=== PATIENT | male | born 1980 | race African-American/Black ===

== ENCOUNTER → 2019-03-18 | Emergency (ER) | payer MEDICAID ==
[~2019-03-18] MED LIST: HALOPERIDOL LACTATE 5MG/ML VIAL IM STA; LORAZEPAM 2MG/ML CPJ IM STA
== END | disposition left against medical advice (07) ==
LOC: ER 17:03
DX: F98.9 Unspecified behavioral and emotional disorders with onset usually occurring in childhood and adolescence (principal); Z53.21 Procedure and treatment not carried out due to patient leaving prior to being seen by health care provider
CPT/HCPCS: J1630; J2060; Z7610

== ENCOUNTER 2019-07-17 14:03 | Emergency (ER) | payer MEDICAID ==
[~2019-07-17] VITALS: Ht 182.9 cm; Wt 100.0 kg
[2019-07-17] MEDS ORDERED: SODIUM CHLORIDE 0.9% 1,000 ML IV ONE (14:21)
[2019-07-17] MEDS ORDERED: ACETAMINOPHEN 325MG TABLET PO ONE (14:30)
[2019-07-17] MEDS ORDERED: LORAZEPAM 2MG/ML CPJ IV ONE ×2 (14:30→16:30)
[2019-07-17] MEDS ORDERED: ONDANSETRON HCL 4MG/2ML INJ IV ONE ×2 (14:30)
[2019-07-17] MEDS ORDERED: OLANZAPINE 10 MG/VIAL IM ONE (15:00)
[2019-07-17 16:31] LABS: BASOPHILS % 0.6 % (0.0-2.0); EOSINOPHILS % 0.1 % (0.0-5.0); HEMATOCRIT. 38.4 % (42.0-52.0); HEMOGLOBIN. 12.7 g/dL (14.0-18.0); LYMPHOCYTES % 24.2 % (20.0-50.0); MEAN CORPUSCULAR HEMOGLOBIN 27.9 pg (28.0-32.0); MONOCYTES % 6.7 % (2.0-8.0); NEUTROPHILS % 68.4 % (40.0-76.0); PLATELET 300 x1000/uL (130-400); RED BLOOD CELL COUNT 4.57 mill/uL (4.7-6.1)
[2019-07-17 16:37] LABS: CHLORIDE 109 mEq/L (98-107)
[2019-07-17 16:47] LABS: ETHANOL BLOOD 32 mg/dL
[2019-07-17] MEDS ORDERED: ONDANSETRON HCL 4MG/2ML INJ IV NR (19:00)
[2019-07-17 21:08] LABS: *AMPHETAMINES SCREEN URINE PRESUMTIVE POSITIVE (NEGATIVE); *BARBITURATES SCREEN URINE NEGATIVE (NEGATIVE); *BENZODIAZEPINES SCREEN URINE NEGATIVE (NEGATIVE); *COCAINE SCREEN URINE NEGATIVE (NEGATIVE); METHADONE URINE SCREEN NEGATIVE (NEGATIVE); OPIATES URINE SCREEN NEGATIVE (NEGATIVE); PHENCYCLIDINE URINE SCREEN NEGATIVE (NEGATIVE)
[2019-07-17 21:09] LABS: CANNABINOID URINE SCREEN PRESUMTIVE POSITIVE (NEGATIVE)
[2019-07-18 00:30] VITALS: BP 138/74
== END 2019-07-18 00:30 | disposition home or self-care (01) ==
LOC: ER 14:29
DX: G92 Toxic encephalopathy (principal); R41.82 Altered mental status, unspecified; Z20.828 Contact with and (suspected) exposure to other viral communicable diseases
CPT/HCPCS: 36415; 71045; 80053; 80305; 80307; 80320; 80329; 84484; 85025; 93005; 96372; 96374; 96375; 96376; 99285; J2060; J2405; J3490; J7030; G0480; U0003-CS

== ENCOUNTER 2020-02-29 21:02 | Emergency (ER) | payer MEDICAID ==
[~2020-02-29] VITALS: Ht 177.8 cm; Wt 90.0 kg
[2020-02-29 21:13] VITALS: BP 142/86
[2020-03-01 00:01] LABS: BASOPHILS % 0.5 % (0.0-2.0); HEMATOCRIT. 40.3 % (42.0-52.0); HEMOGLOBIN. 13.2 g/dL (14.0-18.0); LYMPHOCYTES % 9.1 % (20.0-50.0); MEAN CORPUSCULAR HEMOGLOBIN 26.8 pg (28.0-32.0); MEAN CORPUSCULAR VOLUME 81.8 fL (80.0-94.0); MEAN PLATELET VOLUME 7.7 fl (7.4-10.4); MONOCYTES % 6.5 % (2.0-8.0); NEUTROPHILS % 83.9 % (40.0-76.0); PLATELET 231 x1000/uL (130-400); RED BLOOD CELL COUNT 4.93 mill/uL (4.7-6.1); RED CELL DISTRIBUTION WIDTH 16.5 % (11.6-14.6)
[2020-03-01 00:07] LABS: PROTHROMBIN TIME 10.3 sec (9.6-11.0)
[2020-03-01 00:22] LABS: CHLORIDE 107 mEq/L (98-107)
[2020-03-01 00:26] LABS: ETHANOL BLOOD < 10 mg/dL
[2020-03-04 15:09] LABS: CARBOXYHEMOGLOBIN 2.3 % (0.0-3.6)
== END 2020-03-01 06:49 | disposition home or self-care (01) ==
LOC: ER 21:02
DX: R00.0 Tachycardia, unspecified (principal); T65.91XA Toxic effect of unspecified substance, accidental (unintentional), initial encounter; Z59.0 Homelessness; Z98.890 Other specified postprocedural states; Y92.9 Unspecified place or not applicable
CPT/HCPCS: 36415; 80048; 80076; 80178; 80307; 80320; 80329; 82140; 82375; 83930; 84443; 84484; 85025; 86592; 93005; 99284; G0480

== ENCOUNTER 2020-11-07 05:31 | Emergency (ER) | payer MEDICAID ==
[~2020-11-07] VITALS: Ht 172.7 cm; Wt 73.0 kg
[2020-11-07 06:06] LABS: BASOPHILS % 0.3 % (0.0-2.0); EOSINOPHILS % 0.1 % (0.0-5.0); HEMATOCRIT. 40.4 % (42.0-52.0); HEMOGLOBIN. 13.3 g/dL (14.0-18.0); LYMPHOCYTES % 13.3 % (20.0-50.0); MEAN CORPUSCULAR HEMOGLOBIN 27.2 pg (28.0-32.0); MEAN CORPUSCULAR VOLUME 82.8 fL (80.0-94.0); MEAN PLATELET VOLUME 7.2 fl (7.4-10.4); MONOCYTES % 6.9 % (2.0-8.0); NEUTROPHILS % 79.4 % (40.0-76.0); PLATELET 273 x1000/uL (130-400); RED BLOOD CELL COUNT 4.88 mill/uL (4.7-6.1); RED CELL DISTRIBUTION WIDTH 16.3 % (11.6-14.6)
[2020-11-07 06:12] LABS: CHLORIDE 108 mEq/L (98-107)
[2020-11-07 06:16] LABS: ETHANOL BLOOD < 10 mg/dL
[2020-11-07] MEDS: OLANZAPINE 5MG TABLET PO SCH ×2 (10:47→17:42)
[2020-11-07] MEDS ORDERED: ACETAMINOPHEN 325MG TABLET PO ONE (13:15)
[2020-11-07 22:25] LABS: CLARITY URINE CLEAR (CLEAR); COLOR URINE YELLOW (YELLOW); KETONES URINE TRACE (NEGATIVE); LEUKOCYTE ESTERASE URINE NEGATIVE (NEGATIVE); NITRITE URINE NEGATIVE (NEGATIVE); OCCULT BLOOD URINE NEGATIVE (NEGATIVE); PROTEIN URINE NEGATIVE (NEGATIVE); SPECIFIC GRAVITY URINE 1.018 (1.005-1.030); UROBILINOGEN URINE 0.2 E.U./dL (0.2-1.0)
[2020-11-07 22:38] LABS: *AMPHETAMINES SCREEN URINE PRESUMTIVE POSITIVE (NEGATIVE)
[2020-11-07 22:39] LABS: *BARBITURATES SCREEN URINE NEGATIVE (NEGATIVE); *BENZODIAZEPINES SCREEN URINE NEGATIVE (NEGATIVE); *COCAINE SCREEN URINE NEGATIVE (NEGATIVE); METHADONE URINE SCREEN NEGATIVE (NEGATIVE); OPIATES URINE SCREEN NEGATIVE (NEGATIVE); PHENCYCLIDINE URINE SCREEN NEGATIVE (NEGATIVE)
[2020-11-07 22:40] LABS: CANNABINOID URINE SCREEN PRESUMTIVE POSITIVE (NEGATIVE)
[2020-11-08] VITALS: BP 140/97
== END 2020-11-08 01:47 ==
LOC: ER 05:31
DX: R45.850 Homicidal ideations (principal); J45.909 Unspecified asthma, uncomplicated; I10 Essential (primary) hypertension; F12.10 Cannabis abuse, uncomplicated; F15.10 Other stimulant abuse, uncomplicated; Z20.822 Contact with and (suspected) exposure to COVID-19
CPT/HCPCS: 36415; 80053; 80305; 80320; 81003; 82962; 85025; 99285; C9803; U0003; U0005; G0480

== ENCOUNTER 2020-12-25 12:06 | Emergency (ER) | payer MEDICAID ==
[~2020-12-25] VITALS: Ht 188 cm; Wt 100.0 kg
[2020-12-25] MEDS ORDERED: SODIUM CHLORIDE 0.9% 1,000 ML IV ONE ×2 (12:15→15:15)
[2020-12-25] MEDS ORDERED: LORAZEPAM 2MG/ML CPJ IV ONE ×2 (12:30→15:45)
[2020-12-25] MEDS ORDERED: MIDAZOLAM HCL 2 MG/2 ML VIAL IV ONE ×2 (12:45→14:15)
[2020-12-25 12:53] LABS: BASOPHILS % 0.6 % (0.0-2.0); EOSINOPHILS % 0.1 % (0.0-5.0); HEMATOCRIT. 39.5 % (42.0-52.0); HEMOGLOBIN. 13.1 g/dL (14.0-18.0); MEAN CORPUSCULAR HEMOGLOBIN 27.7 pg (28.0-32.0); MEAN CORPUSCULAR VOLUME 83.4 fL (80.0-94.0); MEAN PLATELET VOLUME 7.5 fl (7.4-10.4); MONOCYTES % 7.2 % (2.0-8.0); NEUTROPHILS % 75.1 % (40.0-76.0); PLATELET 262 x1000/uL (130-400); RED BLOOD CELL COUNT 4.74 mill/uL (4.7-6.1); RED CELL DISTRIBUTION WIDTH 16.1 % (11.6-14.6)
[2020-12-25 12:59] LABS: CHLORIDE 106 mEq/L (98-107)
[2020-12-25 13:04] LABS: ETHANOL BLOOD < 10 mg/dL
[2020-12-25] MEDS ORDERED: DIPHENHYDRAMINE 50MG/ML VIAL IV ONE (13:15)
[2020-12-25] MEDS ORDERED: OLANZAPINE 10 MG/VIAL IM ONE (14:15)
[2020-12-25 16:42] LABS: CLARITY URINE CLEAR (CLEAR); COLOR URINE YELLOW (YELLOW); KETONES URINE TRACE (NEGATIVE); LEUKOCYTE ESTERASE URINE NEGATIVE (NEGATIVE); NITRITE URINE NEGATIVE (NEGATIVE); OCCULT BLOOD URINE NEGATIVE (NEGATIVE); PH URINE 8.5 (4.5-8.0); PROTEIN URINE TRACE (NEGATIVE); UROBILINOGEN URINE 0.2 E.U./dL (0.2-1.0)
[2020-12-25] MEDS ORDERED: CLONIDINE 0.2MG TABLET PO ONE (17:15)
[2020-12-25 17:28] LABS: *AMPHETAMINES SCREEN URINE PRESUMTIVE POSITIVE (NEGATIVE); *BARBITURATES SCREEN URINE PRESUMTIVE POSITIVE (NEGATIVE); *BENZODIAZEPINES SCREEN URINE PRESUMTIVE POSITIVE (NEGATIVE); *COCAINE SCREEN URINE NEGATIVE (NEGATIVE); METHADONE URINE SCREEN NEGATIVE (NEGATIVE)
[2020-12-25 17:29] LABS: CANNABINOID URINE SCREEN PRESUMTIVE POSITIVE (NEGATIVE); OPIATES URINE SCREEN NEGATIVE (NEGATIVE); PHENCYCLIDINE URINE SCREEN NEGATIVE (NEGATIVE)
[2020-12-25] MEDS ORDERED: ASPIRIN 81MG TABLET PO ONE (17:30)
[2020-12-25] MEDS ORDERED: NITROGLYCERIN 0.4MG TABLET SL SL PRN (17:30)
[2020-12-25 18:00] VITALS: BP 145/99
[2020-12-25] MEDS ORDERED: IBUP-2028 MT (18:13)
== END 2020-12-25 18:59 | disposition home or self-care (01) ==
LOC: ER 12:19
DX: T43.621A Poisoning by amphetamines, accidental (unintentional), initial encounter (principal); T40.991A Poisoning by other psychodysleptics [hallucinogens], accidental (unintentional), initial encounter; T42.3X1A Poisoning by barbiturates, accidental (unintentional), initial encounter; T40.711A Poisoning by cannabis, accidental (unintentional), initial encounter; R00.0 Tachycardia, unspecified; R07.89 Other chest pain; F41.9 Anxiety disorder, unspecified; F15.129 Other stimulant abuse with intoxication, unspecified; F16.129 Hallucinogen abuse with intoxication, unspecified; F13.129 Sedative, hypnotic or anxiolytic abuse with intoxication, unspecified; F12.129 Cannabis abuse with intoxication, unspecified; D72.819 Decreased white blood cell count, unspecified; I10 Essential (primary) hypertension; J45.909 Unspecified asthma, uncomplicated; Y92.89 Other specified places as the place of occurrence of the external cause; Z78.1 Physical restraint status
CPT/HCPCS: 36415; 71045; 80053; 80305; 80307; 80320; 80329; 81003; 84484; 85025; 93005; 96361; 96372; 96374; 96375; 96376; 99285; J1200; J2060; J2250; J3490; J7030; Z7610; G0480

== ENCOUNTER 2021-06-01 19:20 | Emergency (ER) | payer MEDICAID, MEDICARE ==
[~2021-06-01] VITALS: Ht 182.9 cm; Wt 81.0 kg
[~2021-06-01 19:20] MED LIST changes: -HALOPERIDOL LACTATE 5MG/ML VIAL IM STA; +IBUP-2028 MT; -LORAZEPAM 2MG/ML CPJ IM STA
[2021-06-01 20:33] LABS: BASOPHILS % 0.3 % (0.0-2.0); EOSINOPHILS % 0.1 % (0.0-5.0); HEMATOCRIT. 36.1 % (42.0-52.0); MEAN CORPUSCULAR HEMOGLOBIN 26.9 pg (28.0-32.0); MEAN CORPUSCULAR VOLUME 81.1 fL (80.0-94.0); MEAN PLATELET VOLUME 7.2 fl (7.4-10.4); NEUTROPHILS % 72.6 % (40.0-76.0); PLATELET 238 x1000/uL (130-400); RED BLOOD CELL COUNT 4.45 mill/uL (4.7-6.1); RED CELL DISTRIBUTION WIDTH 18.5 % (11.6-14.6)
[2021-06-01 20:38] LABS: CHLORIDE 112 mEq/L (98-107)
[2021-06-01] MEDS ORDERED: DIPHENHYDRAMINE 25MG CAPSULE PO ONE (21:00)
[2021-06-02] VITALS: BP 136/85
== END 2021-06-02 00:04 | disposition home or self-care (01) ==
LOC: ER 19:20
DX: T43.621A Poisoning by amphetamines, accidental (unintentional), initial encounter (principal); R07.2 Precordial pain; R51.9 Headache, unspecified; F15.188 Other stimulant abuse with other stimulant-induced disorder; R94.31 Abnormal electrocardiogram [ECG] [EKG]; Y93.89 Activity, other specified; Y92.89 Other specified places as the place of occurrence of the external cause
CPT/HCPCS: 36415; 71045; 80053; 84484; 85025; 93005; 99285; Q0163

== ENCOUNTER 2021-06-04 03:31 | Emergency (ER) | payer MEDICAID, MEDICARE ==
[~2021-06-04] VITALS: Ht 172.7 cm; Wt 85.0 kg
[2021-06-04] MEDS ORDERED: DIPHENHYDRAMINE 50MG/ML VIAL IM STA (04:24)
[2021-06-04] MEDS ORDERED: LORAZEPAM 2MG/ML CPJ IM STA (04:24)
[2021-06-04 04:57] LABS: BASOPHILS % 0.2 % (0.0-2.0); HEMATOCRIT. 36.1 % (42.0-52.0); LYMPHOCYTES % 11.8 % (20.0-50.0); MEAN CORPUSCULAR VOLUME 81.4 fL (80.0-94.0); MEAN PLATELET VOLUME 7.1 fl (7.4-10.4); MONOCYTES % 7.5 % (2.0-8.0); NEUTROPHILS % 80.5 % (40.0-76.0); PLATELET 253 x1000/uL (130-400); RED BLOOD CELL COUNT 4.44 mill/uL (4.7-6.1); RED CELL DISTRIBUTION WIDTH 18.8 % (11.6-14.6)
[2021-06-04 05:05] LABS: CHLORIDE 105 mEq/L (98-107)
[2021-06-04 05:09] LABS: ETHANOL BLOOD < 10 mg/dL
[2021-06-04 10:55] VITALS: BP 130/86
== END 2021-06-04 10:59 | disposition home or self-care (01) ==
LOC: ER 03:31
DX: F15.129 Other stimulant abuse with intoxication, unspecified (principal); R00.0 Tachycardia, unspecified; I10 Essential (primary) hypertension; J45.909 Unspecified asthma, uncomplicated
CPT/HCPCS: 36415; 80053; 80307; 80320; 80329; 85025; 96372; 99284; J1200; J2060; G0480

== ENCOUNTER 2021-06-08 11:44 | Emergency (ER) | payer MEDICAID ==
[~2021-06-08] VITALS: Ht 175.3 cm; Wt 85.0 kg
[2021-06-08] MEDS ORDERED: LORAZEPAM 1MG TABLET PO ONE (12:45)
[2021-06-08] MEDS ORDERED: DIPHENHYDRAMINE 25MG CAPSULE PO ONE (13:45)
[2021-06-08] MEDS: HALOPERIDOL LACTATE 5MG/ML VIAL IM ONE ×2 (14:13→15:25)
[2021-06-08] MEDS ORDERED: LORAZEPAM 2MG/ML CPJ IM ONE (14:15)
[2021-06-08 22:52] VITALS: BP 108/76
== END 2021-06-08 22:54 | disposition home or self-care (01) ==
LOC: ER 11:55
DX: T43.621A Poisoning by amphetamines, accidental (unintentional), initial encounter (principal); Y92.89 Other specified places as the place of occurrence of the external cause; J45.909 Unspecified asthma, uncomplicated; I10 Essential (primary) hypertension
CPT/HCPCS: 93005; 96372; 99291; J1630; J2060; Q0163

== ENCOUNTER 2021-07-24 17:46 | Emergency (ER) | payer MEDICAID ==
[~2021-07-24] VITALS: Ht 180.3 cm; Wt 78.0 kg
[~2021-07-24 17:46] MED LIST changes: +ASPI-986 MT; +LIP40 PO
[2021-07-24] MEDS ORDERED: DIPHENHYDRAMINE 50MG/ML VIAL IM STA (19:06)
[2021-07-24] MEDS ORDERED: HALOPERIDOL LACTATE 5MG/ML VIAL IM STA (19:06)
[2021-07-24] MEDS ORDERED: LORAZEPAM 2MG/ML CPJ IM STA (19:06)
[2021-07-24] MEDS ORDERED: SODIUM CHLORIDE 0.9% 1,000 ML IV ONE ×2 (19:15)
[2021-07-24 19:30] LABS: BASOPHILS % 0.2 % (0.0-2.0); HEMOGLOBIN. 12.5 g/dL (14.0-18.0); LYMPHOCYTES % 12.5 % (20.0-50.0); MEAN CORPUSCULAR HEMOGLOBIN 26.4 pg (28.0-32.0); MEAN CORPUSCULAR VOLUME 80.4 fL (80.0-94.0); MEAN PLATELET VOLUME 7.4 fl (7.4-10.4); MONOCYTES % 7.9 % (2.0-8.0); NEUTROPHILS % 79.4 % (40.0-76.0); PLATELET 315 x1000/uL (130-400); RED BLOOD CELL COUNT 4.73 mill/uL (4.7-6.1); RED CELL DISTRIBUTION WIDTH 18.2 % (11.6-14.6)
[2021-07-24 19:31] LABS: CHLORIDE 107 mEq/L (98-107)
[2021-07-24 19:42] LABS: CREATINE KINASE 395 IU/L (39-308); ETHANOL BLOOD < 10 mg/dL
[2021-07-24] MEDS ORDERED: POTASSIUM CHLORIDE 20MEQ TABLET SR PO ONE (21:30)
[2021-07-24 22:05] LABS: *AMPHETAMINES SCREEN URINE PRESUMTIVE POSITIVE (NEGATIVE); *BARBITURATES SCREEN URINE NEGATIVE (NEGATIVE); *BENZODIAZEPINES SCREEN URINE PRESUMTIVE POSITIVE (NEGATIVE); *COCAINE SCREEN URINE NEGATIVE (NEGATIVE); CANNABINOID URINE SCREEN PRESUMTIVE POSITIVE (NEGATIVE); METHADONE URINE SCREEN NEGATIVE (NEGATIVE); OPIATES URINE SCREEN NEGATIVE (NEGATIVE); PHENCYCLIDINE URINE SCREEN NEGATIVE (NEGATIVE)
[2021-07-25] MEDS ORDERED: ASPIRIN 81MG TABLET PO ONE
[2021-07-25] MEDS: NITROGLYCERIN 0.4MG TABLET SL SL PRN ×2 (00:10→00:42)
[2021-07-25] MEDS ORDERED: DIPHENHYDRAMINE 50MG CAPSULE PO ONE (02:15)
[2021-07-25 08:27] VITALS: BP 147/85
== END 2021-07-25 10:58 | disposition home or self-care (01) ==
LOC: ER 17:46
DX: R45.1 Restlessness and agitation (principal); R07.89 Other chest pain; R45.850 Homicidal ideations; F15.10 Other stimulant abuse, uncomplicated; T43.621A Poisoning by amphetamines, accidental (unintentional), initial encounter; Y92.89 Other specified places as the place of occurrence of the external cause; F10.229 Alcohol dependence with intoxication, unspecified; Y90.0 Blood alcohol level of less than 20 mg/100 ml; F41.9 Anxiety disorder, unspecified; J45.909 Unspecified asthma, uncomplicated; I10 Essential (primary) hypertension; Z20.822 Contact with and (suspected) exposure to COVID-19
CPT/HCPCS: 36415; 71045; 80053; 80305; 80307; 80320; 80329; 82550; 83880; 84484; 85025; 93005; 96360; 96372; 99291; C9803; J1200; J1630; J2060; J7030; U0003; U0005; Q0163; G0480

== ENCOUNTER 2021-08-25 14:57 | Inpatient (IN) | payer MEDICAID ==
[~2021-08-25] VITALS: Ht 188 cm; Wt 79.0 kg
[2021-08-25] MEDS ORDERED: NITROGLYCERIN 0.4MG TABLET SL SL PRN ×2 (15:15→18:00)
[2021-08-25] MEDS ORDERED: MIDAZOLAM HCL 2 MG/2 ML VIAL IV ONE (15:15)
[2021-08-25] MEDS ORDERED: SODIUM CHLORIDE 0.9% 1,000 ML IV ONE (15:15)
[2021-08-25] MEDS ORDERED: ASPIRIN 81MG TABLET PO ONE (15:15)
[2021-08-25] MEDS ORDERED: KETOROLAC 15MG/ML VIAL IV ONE (15:30)
[2021-08-25] MEDS ORDERED: DIPHENHYDRAMINE 50MG/ML VIAL IV ONE (15:30)
[2021-08-25 16:18] LABS: BASOPHILS % 0.5 % (0.0-2.0); EOSINOPHILS % 0.1 % (0.0-5.0); HEMATOCRIT. 37.5 % (42.0-52.0); HEMOGLOBIN. 12.3 g/dL (14.0-18.0); LYMPHOCYTES % 14.5 % (20.0-50.0); MEAN CORPUSCULAR HEMOGLOBIN 26.3 pg (28.0-32.0); MEAN CORPUSCULAR VOLUME 80.2 fL (80.0-94.0); MONOCYTES % 6.4 % (2.0-8.0); NEUTROPHILS % 78.5 % (40.0-76.0); RED BLOOD CELL COUNT 4.67 mill/uL (4.7-6.1); RED CELL DISTRIBUTION WIDTH 17.1 % (11.6-14.6)
[2021-08-25 16:22] LABS: CHLORIDE 105 mEq/L (98-107)
[2021-08-25 16:32] LABS: ETHANOL BLOOD 34 mg/dL
[2021-08-25] MEDS ORDERED: DILTIAZEM HCL 5MG/ML 5ML VIAL IV ONE (16:45)
[2021-08-25] MEDS ORDERED: DILTIAZEM HCL 5MG/ML 10ML VIAL IV NR (16:52)
[2021-08-25] MEDS ORDERED: IPRATROPIUM/ALBUTEROL 0.5-3(2.5)MG/3ML NEB NEB PRN (18:00)
[2021-08-25] MEDS ORDERED: ZOLPIDEM TARTRATE 5MG TABLET PO PRN (18:00)
[2021-08-25] MEDS ORDERED: GUAIFENESIN 200MG/10ML SUGAR FREE UDC PO PRN (18:00)
[2021-08-25] MEDS ORDERED: MAGNESIUM/ALUMINUM HYDROXIDE/SIMETHICONE 30ML UDC PO PRN (18:00)
[2021-08-25] MEDS ORDERED: CLONIDINE 0.1MG TABLET PO PRN (18:00)
[2021-08-25] MEDS ORDERED: ONDANSETRON HCL 4MG/2ML INJ IV PRN (18:00)
[2021-08-25] MEDS ORDERED: DOCUSATE SODIUM 100MG CAPSULE PO PRN (18:00)
[2021-08-25] MEDS ORDERED: ACETAMINOPHEN 325MG TABLET PO PRN (18:00)
[2021-08-25] MEDS ORDERED: NA PHOS,M-B/NA PHOS,DI-BA ENEMA 118ML PR PRN (18:00)
[2021-08-25 18:26] LABS: MEAN PLATELET VOLUME 7.7 fl (7.4-10.4); PLATELET 239 x1000/uL (130-400)
[2021-08-25] MEDS ORDERED: MVI, ADULT NO.1 10 ML, FOLIC ACID 1 MG, THIAMINE HCL 100 MG in SODIUM CHLORIDE 0.9% 1,0... IV ONE ×4 (18:30)
[2021-08-25] MEDS: ENOXAPARIN 40MG/0.4ML SYR SUBCUT SCH (19:02)
[2021-08-25] MEDS: DILTIAZEM HCL 60MG TABLET PO SCH (19:02)
[2021-08-25 19:30] LABS: T4 FREE 0.93 ng/dL (0.76-1.46)
[2021-08-25 19:47] LABS: FOLIC ACID (FOLATE) SERUM 16.4 ng/mL (>5.38)
[2021-08-25 20:40] VITALS: BP 135/91
[2021-08-25] MEDS: FAMOTIDINE 20MG TABLET PO SCH (21:00)
[2021-08-25 23:14] LABS: CREATINE KINASE MB FRACTION 6.2 ng/mL (0.5-3.6)
[2021-08-25] MEDS: ACETAMINOPHEN 325MG TABLET PO PRN (23:26)
[2021-08-26] VITALS (12 sets, daily range): BP systolic 26–180; BP diastolic 16–107
[2021-08-26] MEDS: DILTIAZEM HCL 60MG TABLET PO SCH ×5 (01:16→23:53)
[2021-08-26 06:23] LABS: BASOPHILS % 0.6 % (0.0-2.0); EOSINOPHILS % 0.1 % (0.0-5.0); HEMATOCRIT. 36.4 % (42.0-52.0); HEMOGLOBIN. 11.9 g/dL (14.0-18.0); LYMPHOCYTES % 21.3 % (20.0-50.0); MEAN CORPUSCULAR HEMOGLOBIN 26.3 pg (28.0-32.0); MEAN CORPUSCULAR VOLUME 80.5 fL (80.0-94.0); MEAN PLATELET VOLUME 7.4 fl (7.4-10.4); MONOCYTES % 11.2 % (2.0-8.0); NEUTROPHILS % 66.8 % (40.0-76.0); PLATELET 229 x1000/uL (130-400); RED BLOOD CELL COUNT 4.53 mill/uL (4.7-6.1)
[2021-08-26 06:40] LABS: CHLORIDE 108 mEq/L (98-107)
[2021-08-26 07:01] LABS: CREATINE KINASE 1292 IU/L (39-308); CREATINE KINASE MB FRACTION 8.5 ng/mL (0.5-3.6); PHOSPHORUS 3.2 mg/dL (2.5-4.9)
[2021-08-26] MEDS: FAMOTIDINE 20MG TABLET PO SCH ×2 (08:33→21:30)
[2021-08-26] MEDS: ASPIRIN 325MG EC TABLET PO SCH (08:37)
[2021-08-26] MEDS: ACETAMINOPHEN 325MG TABLET PO PRN (08:44)
[2021-08-26] MEDS: KETOROLAC 15MG/ML VIAL IV PRN ×2 (10:41→17:57)
[2021-08-26] MEDS: CHLORDIAZEPOXIDE 10MG CAPSULE PO SCH (12:56)
[2021-08-26] MEDS: METOPROLOL TARTRATE 50MG TABLET PO SCH ×2 (12:57→21:43)
[2021-08-26] MEDS: ENOXAPARIN 40MG/0.4ML SYR SUBCUT SCH (17:57)
[2021-08-27] VITALS (14 sets, daily range): BP systolic 74–151; BP diastolic 25–114
[2021-08-27] MEDS: ACETAMINOPHEN 325MG TABLET PO PRN ×2 (05:05→20:13)
[2021-08-27] MEDS: DILTIAZEM HCL 60MG TABLET PO SCH ×3 (06:00→18:33)
[2021-08-27] MEDS: ASPIRIN 325MG EC TABLET PO SCH (09:49)
[2021-08-27] MEDS: CHLORDIAZEPOXIDE 10MG CAPSULE PO SCH (09:49)
[2021-08-27] MEDS: FAMOTIDINE 20MG TABLET PO SCH ×2 (09:49→20:13)
[2021-08-27] MEDS: METOPROLOL TARTRATE 50MG TABLET PO SCH ×2 (09:50→20:16)
[2021-08-27] MEDS: ENOXAPARIN 40MG/0.4ML SYR SUBCUT SCH (18:35)
[2021-08-28] VITALS: BP 150/96
[2021-08-28] MEDS: DILTIAZEM HCL 60MG TABLET PO SCH ×2 (00:11→05:52)
[2021-08-28] MEDS: ACETAMINOPHEN 325MG TABLET PO PRN (01:33)
[2021-08-28] MEDS: KETOROLAC 15MG/ML VIAL IV PRN ×2 (03:48→09:49)
[2021-08-28 04:00] VITALS: BP 131/82
[2021-08-28 06:33] LABS: BASOPHILS % 0.3 % (0.0-2.0); EOSINOPHILS % 0.5 % (0.0-5.0); HEMATOCRIT. 37.2 % (42.0-52.0); HEMOGLOBIN. 12.4 g/dL (14.0-18.0); LYMPHOCYTES % 31.5 % (20.0-50.0); MEAN CORPUSCULAR HEMOGLOBIN 26.6 pg (28.0-32.0); MEAN CORPUSCULAR VOLUME 79.6 fL (80.0-94.0); MEAN PLATELET VOLUME 7.6 fl (7.4-10.4); MONOCYTES % 11.3 % (2.0-8.0); NEUTROPHILS % 56.4 % (40.0-76.0); PLATELET 266 x1000/uL (130-400); RED BLOOD CELL COUNT 4.67 mill/uL (4.7-6.1); RED CELL DISTRIBUTION WIDTH 17.6 % (11.6-14.6)
[2021-08-28 06:47] LABS: CHLORIDE 103 mEq/L (98-107)
[2021-08-28 06:59] LABS: PHOSPHORUS 3.9 mg/dL (2.5-4.9)
[2021-08-28 08:00] VITALS: BP 154/44
[2021-08-28 09:30] VITALS: BP 136/52
[2021-08-28] MEDS: CHLORDIAZEPOXIDE 10MG CAPSULE PO SCH (09:48)
[2021-08-28] MEDS: ASPIRIN 325MG EC TABLET PO SCH (09:48)
[2021-08-28] MEDS: FAMOTIDINE 20MG TABLET PO SCH (09:48)
[2021-08-28] MEDS: METOPROLOL TARTRATE 50MG TABLET PO SCH (09:52)
[2021-08-28 11:27] VITALS: BP 136/54
== END 2021-08-28 12:00 | disposition home or self-care (01) | DRG 201 ==
LOC: ER 14:57 → 5EST 17:47 → ENRESERV 18:56
PROVIDERS: ADMIT Internal Medicine; ATTEND Internal Medicine
DX: I47.1 Supraventricular tachycardia (principal); N17.0 Acute kidney failure with tubular necrosis; R07.9 Chest pain, unspecified; I10 Essential (primary) hypertension; F19.10 Other psychoactive substance abuse, uncomplicated; F41.9 Anxiety disorder, unspecified; J45.909 Unspecified asthma, uncomplicated; Z87.891 Personal history of nicotine dependence; Z88.8 Allergy status to other drugs, medicaments and biological substances; F10.11 Alcohol abuse, in remission; R55 Syncope and collapse; Z71.51 Drug abuse counseling and surveillance of drug abuser
CPT/HCPCS: 36415; 71045; 80053; 80061; 80320; 82550; 82553; 82607; 82746; 83036; 83540; 83550; 83735; 83880; 84100; 84439; 84443; 84484; 85025; 93005; 93306; 93970; 99291; J1200; J1650; J1885; J2250; J3411; J3490; J7030; G0480

== ENCOUNTER 2021-08-30 18:19 | Emergency (ER) | payer MEDICAID ==
[~2021-08-30] VITALS: Ht 170.2 cm; Wt 77.0 kg
[2021-08-30] MEDS ORDERED: MIDAZOLAM HCL 2 MG/2 ML VIAL IV ONE (18:45)
[2021-08-30] MEDS ORDERED: SODIUM CHLORIDE 0.9% 1,000 ML IV ONE (18:45)
[2021-08-30] MEDS ORDERED: NITROGLYCERIN 0.4MG TABLET SL SL PRN (18:45)
[2021-08-30] MEDS ORDERED: ASPIRIN 81MG TABLET PO ONE (18:45)
[2021-08-30 21:22] LABS: CHLORIDE 106 mEq/L (98-107)
[2021-08-30 21:23] LABS: BASOPHILS % 0.3 % (0.0-2.0); EOSINOPHILS % 0.1 % (0.0-5.0); HEMATOCRIT. 37.1 % (42.0-52.0); HEMOGLOBIN. 12.2 g/dL (14.0-18.0); LYMPHOCYTES % 22.9 % (20.0-50.0); MEAN CORPUSCULAR HEMOGLOBIN 26.5 pg (28.0-32.0); MEAN CORPUSCULAR VOLUME 80.7 fL (80.0-94.0); MEAN PLATELET VOLUME 7.3 fl (7.4-10.4); MONOCYTES % 9.3 % (2.0-8.0); NEUTROPHILS % 67.4 % (40.0-76.0); PLATELET 281 x1000/uL (130-400); RED CELL DISTRIBUTION WIDTH 17.8 % (11.6-14.6)
[2021-08-30 21:30] LABS: *AMPHETAMINES SCREEN URINE PRESUMTIVE POSITIVE (NEGATIVE); *BARBITURATES SCREEN URINE NEGATIVE (NEGATIVE); *BENZODIAZEPINES SCREEN URINE PRESUMTIVE POSITIVE (NEGATIVE); *COCAINE SCREEN URINE NEGATIVE (NEGATIVE); CANNABINOID URINE SCREEN NEGATIVE (NEGATIVE); METHADONE URINE SCREEN NEGATIVE (NEGATIVE); OPIATES URINE SCREEN NEGATIVE (NEGATIVE); PHENCYCLIDINE URINE SCREEN NEGATIVE (NEGATIVE)
[2021-08-30 21:33] LABS: ETHANOL BLOOD < 10 mg/dL
[2021-08-30] MEDS ORDERED: MIDAZOLAM HCL 2 MG/2 ML VIAL IV NR (23:00)
[2021-08-30] MEDS ORDERED: ASPIRIN 81MG TABLET PO NR (23:00)
[2021-08-31 02:00] VITALS: BP 143/97
== END 2021-08-31 02:12 | disposition home or self-care (01) ==
LOC: ER 18:19
DX: R07.89 Other chest pain (principal); T43.621A Poisoning by amphetamines, accidental (unintentional), initial encounter; Y92.89 Other specified places as the place of occurrence of the external cause; F15.10 Other stimulant abuse, uncomplicated; F10.229 Alcohol dependence with intoxication, unspecified; F41.9 Anxiety disorder, unspecified; J45.909 Unspecified asthma, uncomplicated; I10 Essential (primary) hypertension; Y90.0 Blood alcohol level of less than 20 mg/100 ml
CPT/HCPCS: 36415; 71045; 80053; 80305; 80320; 83880; 84484; 85025; 93005; 96361; 96374; 99285; J2250; J7030; Z7610; G0480

== ENCOUNTER 2021-08-31 09:40 | Emergency (ER) | payer MEDICAID ==
[~2021-08-31] VITALS: Ht 170.2 cm; Wt 80.0 kg
[2021-08-31] MEDS ORDERED: MIDAZOLAM HCL 2 MG/2 ML VIAL IM ONE (10:00)
[2021-08-31] MEDS ORDERED: OLANZAPINE 10 MG/VIAL IM ONE (10:00)
[2021-08-31 10:29] LABS: BASOPHILS % 0.2 % (0.0-2.0); EOSINOPHILS % 0.1 % (0.0-5.0); HEMATOCRIT. 35.7 % (42.0-52.0); HEMOGLOBIN. 11.7 g/dL (14.0-18.0); LYMPHOCYTES % 8.6 % (20.0-50.0); MEAN CORPUSCULAR HEMOGLOBIN 26.6 pg (28.0-32.0); MEAN PLATELET VOLUME 6.9 fl (7.4-10.4); MONOCYTES % 7.2 % (2.0-8.0); NEUTROPHILS % 83.9 % (40.0-76.0); PLATELET 274 x1000/uL (130-400); RED CELL DISTRIBUTION WIDTH 17.5 % (11.6-14.6)
[2021-08-31 10:40] LABS: CHLORIDE 106 mEq/L (98-107)
[2021-08-31 10:48] LABS: ETHANOL BLOOD < 10 mg/dL
[2021-08-31] MEDS ORDERED: SODIUM CHLORIDE 0.9% 1,000 ML IV ONE (11:00)
[2021-08-31 13:17] VITALS: BP 145/82
== END 2021-08-31 13:18 | disposition home or self-care (01) ==
LOC: ER 09:47
DX: F15.10 Other stimulant abuse, uncomplicated (principal); R41.0 Disorientation, unspecified; F10.229 Alcohol dependence with intoxication, unspecified; Y90.0 Blood alcohol level of less than 20 mg/100 ml; F41.9 Anxiety disorder, unspecified; J45.909 Unspecified asthma, uncomplicated; I10 Essential (primary) hypertension; Z79.899 Other long term (current) drug therapy
CPT/HCPCS: 36415; 80053; 80307; 80320; 80329; 85025; 96372; 99284; J2250; J3490; J7030; Z7610; G0480

== ENCOUNTER 2021-09-05 20:22 | Emergency (ER) | payer MEDICAID ==
[~2021-09-05] VITALS: Ht 175.3 cm; Wt 82.0 kg
[2021-09-05] MEDS ORDERED: DIPHENHYDRAMINE 50MG/ML VIAL IM STA (23:30)
[2021-09-06 00:40] LABS: BASOPHILS % 0.7 % (0.0-2.0); EOSINOPHILS % 2.2 % (0.0-5.0); HEMOGLOBIN. 11.2 g/dL (14.0-18.0); LYMPHOCYTES % 50.3 % (20.0-50.0); MEAN CORPUSCULAR HEMOGLOBIN 26.9 pg (28.0-32.0); MEAN CORPUSCULAR VOLUME 83.9 fL (80.0-94.0); MEAN PLATELET VOLUME 7.2 fl (7.4-10.4); MONOCYTES % 9.6 % (2.0-8.0); NEUTROPHILS % 37.2 % (40.0-76.0); PLATELET 265 x1000/uL (130-400); RED BLOOD CELL COUNT 4.17 mill/uL (4.7-6.1); RED CELL DISTRIBUTION WIDTH 17.9 % (11.6-14.6)
[2021-09-06 00:45] LABS: CHLORIDE 103 mEq/L (98-107)
[2021-09-06 00:54] LABS: ETHANOL BLOOD < 10 mg/dL
[2021-09-06 01:17] LABS: CLARITY URINE CLEAR (CLEAR); COLOR URINE YELLOW (YELLOW); KETONES URINE TRACE (NEGATIVE); LEUKOCYTE ESTERASE URINE NEGATIVE (NEGATIVE); NITRITE URINE NEGATIVE (NEGATIVE); OCCULT BLOOD URINE NEGATIVE (NEGATIVE); PH URINE 5.5 (4.5-8.0); PROTEIN URINE NEGATIVE (NEGATIVE); SPECIFIC GRAVITY URINE 1.022 (1.005-1.030)
[2021-09-06 01:28] LABS: *AMPHETAMINES SCREEN URINE PRESUMTIVE POSITIVE (NEGATIVE); *BARBITURATES SCREEN URINE NEGATIVE (NEGATIVE); *BENZODIAZEPINES SCREEN URINE NEGATIVE (NEGATIVE); *COCAINE SCREEN URINE NEGATIVE (NEGATIVE); CANNABINOID URINE SCREEN NEGATIVE (NEGATIVE); METHADONE URINE SCREEN NEGATIVE (NEGATIVE); OPIATES URINE SCREEN NEGATIVE (NEGATIVE); PHENCYCLIDINE URINE SCREEN NEGATIVE (NEGATIVE)
[2021-09-06] MEDS ORDERED: DIPHENHYDRAMINE 50MG/ML VIAL IM NR (02:00)
[2021-09-06 14:29] VITALS: BP 105/65
== END 2021-09-06 15:30 | disposition home or self-care (01) ==
LOC: ER 20:54
DX: R45.850 Homicidal ideations (principal); F22 Delusional disorders; F15.10 Other stimulant abuse, uncomplicated; Z20.822 Contact with and (suspected) exposure to COVID-19; F10.20 Alcohol dependence, uncomplicated; Y90.9 Presence of alcohol in blood, level not specified; I10 Essential (primary) hypertension
CPT/HCPCS: 36415; 80053; 80305; 80307; 80320; 80329; 81003; 85025; 96372; 99285; C9803; J1200; U0003; U0005; G0480

== ENCOUNTER 2021-10-06 20:27 | Emergency (ER) | payer MEDICAID ==
[~2021-10-06] VITALS: Ht 172.7 cm; Wt 83.0 kg
[2021-10-06] MEDS ORDERED: DIPHENHYDRAMINE 50MG/ML VIAL IM ONE (23:15)
[2021-10-07 02:43] VITALS: BP 136/81
== END 2021-10-07 02:50 | disposition home or self-care (01) ==
LOC: ER 20:27
DX: F41.9 Anxiety disorder, unspecified (principal); R00.2 Palpitations; J45.909 Unspecified asthma, uncomplicated; I10 Essential (primary) hypertension; F10.229 Alcohol dependence with intoxication, unspecified; Y90.0 Blood alcohol level of less than 20 mg/100 ml
CPT/HCPCS: 71045; 93005; 96372; 99283; J1200

== ENCOUNTER 2022-06-26 02:24 | Emergency (ER) | payer MEDICAID ==
[~2022-06-26] VITALS: Ht 177.8 cm; Wt 75.0 kg
[2022-06-26 02:27] VITALS: BP 164/92
[2022-06-26] MEDS ORDERED: DIPHENHYDRAMINE 25MG CAPSULE PO ONE (03:00)
[2022-06-26 03:25] LABS: BASOPHILS % 0.4 % (0.0-2.0); EOSINOPHILS % 0.1 % (0.0-5.0); HEMATOCRIT. 38.2 % (42.0-52.0); HEMOGLOBIN. 12.4 g/dL (14.0-18.0); MEAN CORPUSCULAR HEMOGLOBIN 25.5 pg (28.0-32.0); MEAN CORPUSCULAR VOLUME 78.7 fL (80.0-94.0); MEAN PLATELET VOLUME 7.6 fl (7.4-10.4); MONOCYTES % 11.3 % (2.0-8.0); NEUTROPHILS % 59.2 % (40.0-76.0); PLATELET 292 x1000/uL (130-400); RED BLOOD CELL COUNT 4.86 mill/uL (4.7-6.1); RED CELL DISTRIBUTION WIDTH 18.4 % (11.6-14.6)
[2022-06-26 03:27] LABS: CHLORIDE 106 mEq/L (98-107)
[2022-06-26 03:35] LABS: ETHANOL BLOOD < 10 mg/dL
[2022-06-26 04:28] LABS: *AMPHETAMINES SCREEN URINE PRESUMTIVE POSITIVE (NEGATIVE); *BARBITURATES SCREEN URINE NEGATIVE (NEGATIVE); *BENZODIAZEPINES SCREEN URINE PRESUMTIVE POSITIVE (NEGATIVE); *COCAINE SCREEN URINE NEGATIVE (NEGATIVE); CANNABINOID URINE SCREEN NEGATIVE (NEGATIVE); METHADONE URINE SCREEN NEGATIVE (NEGATIVE); OPIATES URINE SCREEN NEGATIVE (NEGATIVE); PHENCYCLIDINE URINE SCREEN NEGATIVE (NEGATIVE)
== END 2022-06-26 07:49 | disposition home or self-care (01) ==
LOC: ER 02:33
DX: R45.850 Homicidal ideations (principal); I10 Essential (primary) hypertension; Z88.8 Allergy status to other drugs, medicaments and biological substances; Z90.49 Acquired absence of other specified parts of digestive tract
CPT/HCPCS: 36415; 80048; 80305; 80307; 80320; 80329; 85025; 99283; Q0163; G0480

== ENCOUNTER 2022-06-26 08:17 | Emergency (ER) | payer MEDICAID ==
[~2022-06-26] VITALS: Ht 177.8 cm; Wt 91.0 kg
[2022-06-26] MEDS ORDERED: OLANZAPINE 10 MG/VIAL IM STA (08:31)
[2022-06-26] MEDS ORDERED: DIPHENHYDRAMINE 50MG/ML VIAL IM STA (08:31)
[2022-06-26] MEDS ORDERED: MIDAZOLAM HCL 2 MG/2 ML VIAL IM ONE ×2 (09:45→11:45)
[2022-06-26] MEDS ORDERED: SODIUM CHLORIDE 0.9% 1,000 ML IV ONE ×2 (10:45)
[2022-06-26 20:00] VITALS: BP 116/70
== END 2022-06-26 21:33 | disposition still patient (30) ==
LOC: ER 08:17
DX: R45.1 Restlessness and agitation (principal); F15.10 Other stimulant abuse, uncomplicated; R45.6 Violent behavior; I10 Essential (primary) hypertension; Z90.49 Acquired absence of other specified parts of digestive tract
CPT/HCPCS: 82962; 96360; 96372; 99291; J1200; J2250; J3490; J7030; Z7610

== ENCOUNTER 2022-06-27 15:29 | Emergency (ER) | payer MEDICAID ==
[~2022-06-27] VITALS: Ht 172.7 cm; Wt 80.0 kg
[2022-06-27 15:49] VITALS: BP 118/72
== END 2022-06-27 18:05 | disposition left against medical advice (07) ==
LOC: ER 16:08
DX: Z53.21 Procedure and treatment not carried out due to patient leaving prior to being seen by health care provider (principal)
CPT/HCPCS: 99281

== ENCOUNTER 2022-08-26 10:11 | Emergency (ER) | payer MEDICAID ==
[~2022-08-26] VITALS: Ht 182.9 cm; Wt 90.0 kg
[2022-08-26 10:22] VITALS: BP 120/64; PULSE 100; RESP 16; TEMP 98.6; O2SAT 98
[2022-08-26 12:00] LABS: CHLORIDE 106 mEq/L (98-107)
[2022-08-26 12:09] LABS: ETHANOL BLOOD < 10 mg/dL (-10)
[2022-08-26 12:13] LABS: HEMATOCRIT. 35.8 % (42.0-52.0); HEMOGLOBIN. 11.7 g/dL (14.0-18.0); MEAN CORPUSCULAR HEMOGLOBIN 25.6 pg (28.0-32.0); MEAN CORPUSCULAR VOLUME 77.8 fL (80.0-94.0); MEAN PLATELET VOLUME 7.4 fl (7.4-10.4); PLATELET 278 x1000/uL (130-400); RED BLOOD CELL COUNT 4.59 mill/uL (4.7-6.1); RED CELL DISTRIBUTION WIDTH 19.1 % (11.6-14.6)
[2022-08-26 13:46] LABS: PLATELET ESTIMATE NORMAL
[2022-08-26] MEDS ORDERED: CEPH500C2 PO (14:16)
[2022-08-26 14:22] LABS: CLARITY URINE CLOUDY (CLEAR); COLOR URINE YELLOW (YELLOW); KETONES URINE 1+ (NEGATIVE); LEUKOCYTE ESTERASE URINE NEGATIVE (NEGATIVE); NITRITE URINE NEGATIVE (NEGATIVE); OCCULT BLOOD URINE 2+ (NEGATIVE); PH URINE 5.5 (4.5-8.0); PROTEIN URINE 1+ (NEGATIVE); SPECIFIC GRAVITY URINE 1.021 (1.005-1.030); UROBILINOGEN URINE 0.2 E.U./dL (0.2-1.0)
[2022-08-26] MEDS ORDERED: DIPH25CA83 PO (14:37)
[2022-08-26 15:20] LABS: *AMPHETAMINES SCREEN URINE PRESUMTIVE POSITIVE (NEGATIVE); *BARBITURATES SCREEN URINE NEGATIVE (NEGATIVE); *BENZODIAZEPINES SCREEN URINE PRESUMTIVE POSITIVE (NEGATIVE); *COCAINE SCREEN URINE NEGATIVE (NEGATIVE); CANNABINOID URINE SCREEN NEGATIVE (NEGATIVE); METHADONE URINE SCREEN NEGATIVE (NEGATIVE); OPIATES URINE SCREEN NEGATIVE (NEGATIVE); PHENCYCLIDINE URINE SCREEN NEGATIVE (NEGATIVE)
== END 2022-08-26 15:17 | disposition home or self-care (01) ==
LOC: ER 10:11
DX: F41.9 Anxiety disorder, unspecified (principal); F15.10 Other stimulant abuse, uncomplicated; I10 Essential (primary) hypertension; Z88.8 Allergy status to other drugs, medicaments and biological substances; Z90.49 Acquired absence of other specified parts of digestive tract; Z76.0 Encounter for issue of repeat prescription
CPT/HCPCS: 36415; 80053; 80305; 80320; 81003; 85025; 99283; G0480

== ENCOUNTER 2022-08-26 18:06 | Emergency (ER) | payer MEDICAID ==
[~2022-08-26] VITALS: Ht 170.2 cm; Wt 91.0 kg
[~2022-08-26 18:06] MED LIST changes: +CEPH500C2 PO; +DIPH25CA83 PO
[2022-08-26 18:28] LABS: BASOPHILS % 0.1 % (0.0-2.0); HEMATOCRIT. 35.5 % (42.0-52.0); HEMOGLOBIN. 11.5 g/dL (14.0-18.0); LYMPHOCYTES % 9.9 % (20.0-50.0); MEAN CORPUSCULAR HEMOGLOBIN 25.2 pg (28.0-32.0); MEAN CORPUSCULAR VOLUME 77.8 fL (80.0-94.0); MEAN PLATELET VOLUME 7.2 fl (7.4-10.4); MONOCYTES % 8.2 % (2.0-8.0); NEUTROPHILS % 81.8 % (40.0-76.0); PLATELET 265 x1000/uL (130-400); RED BLOOD CELL COUNT 4.57 mill/uL (4.7-6.1); RED CELL DISTRIBUTION WIDTH 18.8 % (11.6-14.6)
[2022-08-26 18:30] VITALS: O2SAT 97
[2022-08-26 18:32] LABS: CHLORIDE 107 mEq/L (98-107)
[2022-08-26 18:40] LABS: ETHANOL BLOOD < 10 mg/dL (-10)
[2022-08-26] MEDS ORDERED: OLANZAPINE 10 MG/VIAL IM ONE (19:00)
[2022-08-26] MEDS ORDERED: DIPHENHYDRAMINE 50MG/ML VIAL IM ONE (19:00)
[2022-08-26] MEDS ORDERED: LORAZEPAM 2MG/ML CPJ IM ONE (19:00)
[2022-08-26 20:00] VITALS: TEMP 98.8
[2022-08-26 21:01] LABS: CLARITY URINE CLOUDY (CLEAR); COLOR URINE YELLOW (YELLOW); KETONES URINE 2+ (NEGATIVE); LEUKOCYTE ESTERASE URINE NEGATIVE (NEGATIVE); NITRITE URINE NEGATIVE (NEGATIVE); OCCULT BLOOD URINE 2+ (NEGATIVE); PH URINE 5.5 (4.5-8.0); PROTEIN URINE 2+ (NEGATIVE); SPECIFIC GRAVITY URINE 1.027 (1.005-1.030); UROBILINOGEN URINE 0.2 E.U./dL (0.2-1.0)
[2022-08-26 21:19] LABS: *AMPHETAMINES SCREEN URINE PRESUMTIVE POSITIVE (NEGATIVE); *BARBITURATES SCREEN URINE NEGATIVE (NEGATIVE); *BENZODIAZEPINES SCREEN URINE PRESUMTIVE POSITIVE (NEGATIVE); *COCAINE SCREEN URINE NEGATIVE (NEGATIVE); CANNABINOID URINE SCREEN NEGATIVE (NEGATIVE); METHADONE URINE SCREEN NEGATIVE (NEGATIVE); OPIATES URINE SCREEN NEGATIVE (NEGATIVE); PHENCYCLIDINE URINE SCREEN NEGATIVE (NEGATIVE)
[2022-08-27] VITALS: BP 129/98; PULSE 90; RESP 16
== END 2022-08-27 00:54 | disposition left against medical advice (07) ==
LOC: ER 18:06
DX: F29 Unspecified psychosis not due to a substance or known physiological condition (principal); F15.90 Other stimulant use, unspecified, uncomplicated; Z00.00 Encounter for general adult medical examination without abnormal findings; Z20.822 Contact with and (suspected) exposure to COVID-19
CPT/HCPCS: 80053; 80305; 81003; 80307; 80329; 80320; 85025; 36415; 96372; 99291; 87426; J3490; J1200; J2060; C9803; Z7610; G0480

== ENCOUNTER 2022-10-26 19:05 | Emergency (ER) | payer MEDICAID ==
[~2022-10-26] VITALS: Ht 182.9 cm; Wt 82.0 kg
[2022-10-26 19:08] VITALS: BP 143/77; PULSE 160; RESP 16; TEMP 98.6; O2SAT 99
[2022-10-26] MEDS ORDERED: DIPHENHYDRAMINE 50MG/ML VIAL IM PRN (19:30)
[2022-10-26] MEDS ORDERED: HALOPERIDOL LACTATE 5MG/ML VIAL IM ONE (19:30)
[2022-10-26] MEDS ORDERED: LORAZEPAM 2MG/ML CPJ IM PRN (19:30)
[2022-10-26] MEDS ORDERED: ZIPRASIDONE MESYLATE 20MG/VIAL IM ONE (20:00)
[2022-10-26 22:02] LABS: BASOPHILS % 0.4 % (0.0-2.0); DIFFERENTIAL COMMENT 0; EOSINOPHILS % 0.1 % (0.0-5.0); HEMATOCRIT. 35.5 % (42.0-52.0); HEMOGLOBIN. 11.2 g/dL (14.0-18.0); LYMPHOCYTES % 14.3 % (20.0-50.0); MEAN CORPUSCULAR HEMOGLOBIN 24.7 pg (28.0-32.0); MEAN CORPUSCULAR HGB CONC 31.7 g/dL (31.0-37.0); MEAN CORPUSCULAR VOLUME 78.1 fL (80.0-94.0); MEAN PLATELET VOLUME 7.3 fl (7.4-10.4); MONOCYTES % 5.2 % (2.0-8.0); PLATELET 278 x1000/uL (130-400); RED BLOOD CELL COUNT 4.55 mill/uL (4.7-6.1); RED CELL DISTRIBUTION WIDTH 18.4 % (11.6-14.6); WHITE BLOOD COUNT 5.9 x1000/uL (4.5-11.0)
[2022-10-26 22:11] LABS: CALCIUM 8.1 mg/dL (8.5-10.1); CHLORIDE 113 mEq/L (98-107); INDEX HEMOLYSI 1 (1-3); INDEX ICTERIC 1 (1-4); INDEX LIPEMIC 1 (1-3); POTASSIUM 4.4 mEq/L (3.5-5.1); SODIUM 141 mEq/L (136-145)
[2022-10-26 22:12] LABS: PROTHROMBIN TIME 10.7 sec (9.6-11.0)
[2022-10-26 22:20] LABS: ALANINE AMINOTRANSFERASE 26 IU/L (13-61); ALBUMIN 3.7 g/dL (3.4-5.0); ASPARTATE AMINOTRANSFERASE 34 IU/L (15-37); BILIRUBIN TOTAL 0.1 mg/dL (0.1-1.0); CARBON DIOXIDE 25 mEq/L (21-32); CREATININE 1.4 mg/dL (0.6-1.3); GLUCOSE 105 mg/dL (70-105); PROTEIN TOTAL 8.1 g/dL (6.0-8.3); TROPONIN I HIGH SENSITIVITY 6 ng/L (<78); UREA NITROGEN BLOOD 20 mg/dL (7-21)
== END 2022-10-27 05:53 | disposition home or self-care (01) ==
LOC: ER 19:05
DX: R07.89 Other chest pain (principal); F15.10 Other stimulant abuse, uncomplicated; R00.0 Tachycardia, unspecified; I10 Essential (primary) hypertension; Z90.49 Acquired absence of other specified parts of digestive tract
CPT/HCPCS: 99284; 80053; 85025; 85610; 84484; 36415; 93005; 96372; J1200; J1630; J2060

== ENCOUNTER 2022-10-28 16:52 | Emergency (ER) | payer MEDICAID ==
[~2022-10-28] VITALS: Ht 172.7 cm; Wt 80.0 kg
[2022-10-28 16:58] VITALS: BP 129/66; PULSE 133; RESP 20; TEMP 98.5; O2SAT 97
== END 2022-10-28 18:58 | disposition left against medical advice (07) ==
LOC: ER 16:52
DX: Z53.21 Procedure and treatment not carried out due to patient leaving prior to being seen by health care provider (principal); I49.9 Cardiac arrhythmia, unspecified
CPT/HCPCS: 93005; 99281

== ENCOUNTER 2022-11-25 17:30 | Emergency (ER) | payer MEDICAID ==
[~2022-11-25] VITALS: Ht 175.3 cm; Wt 101.0 kg
[2022-11-25] MEDS ORDERED: MIDAZOLAM HCL 2 MG/2 ML VIAL IM ONE ×2 (17:45→20:15)
[2022-11-25 19:30] LABS: CHLORIDE 106 mEq/L (98-107); INDEX HEMOLYSI 1 (1-3); INDEX ICTERIC 1 (1-4); INDEX LIPEMIC 1 (1-3); SODIUM 138 mEq/L (136-145)
[2022-11-25 19:32] LABS: BASOPHILS % 0.1 % (0.0-2.0); DIFFERENTIAL COMMENT 0; HEMATOCRIT. 36.7 % (42.0-52.0); HEMOGLOBIN. 11.7 g/dL (14.0-18.0); LYMPHOCYTES % 10.4 % (20.0-50.0); MEAN CORPUSCULAR HEMOGLOBIN 24.7 pg (28.0-32.0); MEAN CORPUSCULAR HGB CONC 31.9 g/dL (31.0-37.0); MEAN CORPUSCULAR VOLUME 77.6 fL (80.0-94.0); MEAN PLATELET VOLUME 7.4 fl (7.4-10.4); MONOCYTES % 9.2 % (2.0-8.0); NEUTROPHILS % 80.3 % (40.0-76.0); PLATELET 376 x1000/uL (130-400); RED BLOOD CELL COUNT 4.73 mill/uL (4.7-6.1); RED CELL DISTRIBUTION WIDTH 18.5 % (11.6-14.6); WHITE BLOOD COUNT 14.7 x1000/uL (4.5-11.0)
[2022-11-25 19:39] LABS: ACETAMINOPHEN <2 ug/mL ug/mL (10-30); ALANINE AMINOTRANSFERASE 29 IU/L (13-61); ALBUMIN 4.1 g/dL (3.4-5.0); ASPARTATE AMINOTRANSFERASE 30 IU/L (15-37); BILIRUBIN TOTAL 0.2 mg/dL (0.1-1.0); CALCIUM 9.3 mg/dL (8.5-10.1); CARBON DIOXIDE 18 mEq/L (21-32); CREATINE KINASE 355 IU/L (39-308); CREATININE 1.5 mg/dL (0.6-1.3); ETHANOL BLOOD 81 mg/dL (<10); GLUCOSE 107 mg/dL (70-105); PROTEIN TOTAL 8.9 g/dL (6.0-8.3); UREA NITROGEN BLOOD 16 mg/dL (7-21)
[2022-11-25 20:47] LABS: TROPONIN I HIGH SENSITIVITY 27 ng/L (<78)
[2022-11-25 21:18] LABS: CLARITY URINE CLOUDY (CLEAR); COLOR URINE YELLOW (YELLOW); GLUCOSE URINE NEGATIVE (NEGATIVE); KETONES URINE NEGATIVE (NEGATIVE); LEUKOCYTE ESTERASE URINE NEGATIVE (NEGATIVE); NITRITE URINE NEGATIVE (NEGATIVE); OCCULT BLOOD URINE NEGATIVE (NEGATIVE); PH URINE 5.5 (4.5-8.0); PROTEIN URINE 2+ (NEGATIVE); SPECIFIC GRAVITY URINE 1.018 (1.005-1.030); UROBILINOGEN URINE 0.2 E.U./dL (0.2-1.0)
[2022-11-25 21:20] LABS: RBC URINE 0-2 /hpf (0-2); YEAST URINE NONE SEEN
[2022-11-25 21:53] LABS: BACTERIA URINE 2+; SQUAMOUS EPITHELIAL CELL URINE FEW /lpf (RARE/1+)
[2022-11-25 21:54] LABS: HYALINE CASTS URINE 0-5 /lpf; WBC URINE 0-2 /hpf (0-2)
[2022-11-25 22:01] LABS: *AMPHETAMINES SCREEN URINE PRESUMTIVE POSITIVE (NEGATIVE); *BARBITURATES SCREEN URINE NEGATIVE (NEGATIVE); *BENZODIAZEPINES SCREEN URINE PRESUMTIVE POSITIVE (NEGATIVE); *COCAINE SCREEN URINE NEGATIVE (NEGATIVE); CANNABINOID URINE SCREEN NEGATIVE (NEGATIVE); ECSTASY MDMA SCREEN URINE CONF.TEST INDICATED (NEGATIVE); OPIATES URINE SCREEN NEGATIVE (NEGATIVE); PHENCYCLIDINE URINE SCREEN NEGATIVE (NEGATIVE)
[2022-11-26] MEDS ORDERED: ARIPIPRAZOLE 2MG TABLET PO NR (10:00)
[2022-11-26] MEDS ORDERED: LORAZEPAM 2MG/ML CPJ IM STA (12:54)
[2022-11-26] MEDS ORDERED: OLANZAPINE 10 MG/VIAL IM ONE (13:00)
[2022-11-26 16:25] VITALS: O2SAT 97
[2022-11-26] MEDS ORDERED: POTASSIUM CHLORIDE 20MEQ TABLET SR PO ONE (17:30)
[2022-11-27 04:00] VITALS: BP 133/82; PULSE 98; RESP 18; TEMP 97.9
== END 2022-11-27 04:22 | disposition short-term general hospital (02) ==
LOC: ER 17:34
DX: F15.90 Other stimulant use, unspecified, uncomplicated (principal); I49.9 Cardiac arrhythmia, unspecified; Z88.8 Allergy status to other drugs, medicaments and biological substances; Z20.822 Contact with and (suspected) exposure to COVID-19
CPT/HCPCS: 80053; 80305; 81003; 80307; 80329; 80320; 82550; 85025; 84484; 36415; 93005; 96372 ×2; 99285; 87426; J2250; C9803; Z7610 ×2; J3490; J2060; G0480

== ENCOUNTER 2022-12-27 18:43 | Emergency (ER) | payer MEDICAID ==
[~2022-12-27] VITALS: Ht 175.3 cm; Wt 78.0 kg
[2022-12-27 18:55] VITALS: BP 180/94; PULSE 174; RESP 20; TEMP 99; O2SAT 99
[2022-12-27] MEDS ORDERED: LORAZEPAM 2MG/ML CPJ IM ONE (19:00)
[2022-12-27 22:14] LABS: HEMATOCRIT. 35.7 % (42.0-52.0); HEMOGLOBIN. 11.4 g/dL (14.0-18.0); MEAN CORPUSCULAR HEMOGLOBIN 24.5 pg (28.0-32.0); MEAN CORPUSCULAR HGB CONC 31.8 g/dL (31.0-37.0); MEAN PLATELET VOLUME 7.4 fl (7.4-10.4); PLATELET 255 x1000/uL (130-400); RED BLOOD CELL COUNT 4.64 mill/uL (4.7-6.1); RED CELL DISTRIBUTION WIDTH 18.9 % (11.6-14.6); WHITE BLOOD COUNT 10.6 x1000/uL (4.5-11.0)
[2022-12-27 22:15] LABS: DIFFERENTIAL COMMENT 1
[2022-12-27 22:23] LABS: CHLORIDE 110 mEq/L (98-107); INDEX HEMOLYSI 1 (1-3); INDEX ICTERIC 1 (1-4); INDEX LIPEMIC 1 (1-3); POTASSIUM 3.9 mEq/L (3.5-5.1); SODIUM 141 mEq/L (136-145)
[2022-12-27 22:31] LABS: ACETAMINOPHEN <2 ug/mL ug/mL (10-30); ALANINE AMINOTRANSFERASE 21 IU/L (13-61); ALBUMIN 4.2 g/dL (3.4-5.0); ASPARTATE AMINOTRANSFERASE 22 IU/L (15-37); BILIRUBIN TOTAL 0.3 mg/dL (0.1-1.0); CALCIUM 9.5 mg/dL (8.5-10.1); CARBON DIOXIDE 24 mEq/L (21-32); CREATININE 1.4 mg/dL (0.6-1.3); ETHANOL BLOOD < 10 mg/dL (<10); GLUCOSE 99 mg/dL (70-105); PROTEIN TOTAL 8.6 g/dL (6.0-8.3); UREA NITROGEN BLOOD 18 mg/dL (7-21)
[2022-12-27 22:45] LABS: ANISOCYTOSIS 2+; MICROCYTOSIS 1+; PLATELET ESTIMATE NORMAL
== END 2022-12-28 06:00 | disposition home or self-care (01) ==
LOC: ER 18:43
DX: F15.90 Other stimulant use, unspecified, uncomplicated (principal); F20.9 Schizophrenia, unspecified; Z88.8 Allergy status to other drugs, medicaments and biological substances
CPT/HCPCS: 80053; 80307; 80329; 80320; 85025; 36415; 96372; 99283; J2060; Z7610 ×2; G0480

== ENCOUNTER 2022-12-28 08:58 | Emergency (ER) | payer MEDICAID ==
[~2022-12-28] VITALS: Ht 182.9 cm; Wt 82.0 kg
[2022-12-28] MEDS ORDERED: ZIPRASIDONE MESYLATE 20MG/VIAL IM STA (09:02)
[2022-12-28] MEDS ORDERED: LORAZEPAM 2MG/ML CPJ IM STA (09:02)
[2022-12-28] MEDS ORDERED: DIPHENHYDRAMINE 50MG/ML VIAL IM STA (09:02)
[2022-12-28 09:50] LABS: BASOPHILS % 0.4 % (0.0-2.0); DIFFERENTIAL COMMENT 0; HEMATOCRIT. 35.9 % (42.0-52.0); HEMOGLOBIN. 11.3 g/dL (14.0-18.0); LYMPHOCYTES % 15.1 % (20.0-50.0); MEAN CORPUSCULAR HEMOGLOBIN 24.2 pg (28.0-32.0); MEAN CORPUSCULAR HGB CONC 31.6 g/dL (31.0-37.0); MEAN CORPUSCULAR VOLUME 76.7 fL (80.0-94.0); MEAN PLATELET VOLUME 7.1 fl (7.4-10.4); MONOCYTES % 11.7 % (2.0-8.0); NEUTROPHILS % 72.8 % (40.0-76.0); PLATELET 238 x1000/uL (130-400); RED BLOOD CELL COUNT 4.67 mill/uL (4.7-6.1); RED CELL DISTRIBUTION WIDTH 18.6 % (11.6-14.6); WHITE BLOOD COUNT 7.9 x1000/uL (4.5-11.0)
[2022-12-28 09:54] LABS: CHLORIDE 107 mEq/L (98-107); INDEX HEMOLYSI 1 (1-3); INDEX ICTERIC 1 (1-4); INDEX LIPEMIC 1 (1-3); POTASSIUM 3.4 mEq/L (3.5-5.1); SODIUM 140 mEq/L (136-145)
[2022-12-28 10:00] VITALS: O2SAT 99
[2022-12-28 10:01] LABS: ALANINE AMINOTRANSFERASE 42 IU/L (13-61); ASPARTATE AMINOTRANSFERASE 149 IU/L (15-37); BILIRUBIN TOTAL 0.5 mg/dL (0.1-1.0); CARBON DIOXIDE 20 mEq/L (21-32); CREATININE 1.4 mg/dL (0.6-1.3); ETHANOL BLOOD < 10 mg/dL (<10); GLUCOSE 156 mg/dL (70-105); PROTEIN TOTAL 8.3 g/dL (6.0-8.3); UREA NITROGEN BLOOD 19 mg/dL (7-21)
[2022-12-29 02:58] VITALS: BP 136/85; PULSE 88; RESP 18; TEMP 98
== END 2022-12-29 04:47 | disposition home or self-care (01) ==
LOC: ER 08:58
DX: F22 Delusional disorders (principal); F15.90 Other stimulant use, unspecified, uncomplicated; Z88.8 Allergy status to other drugs, medicaments and biological substances
CPT/HCPCS: 80053; 80320; 85025; 36415; 96372; 99285; J1200; J2060; J3486; Z7610; G0480

== ENCOUNTER 2023-01-29 16:24 | Emergency (ER) | payer MEDICAID ==
[~2023-01-29] VITALS: Ht 182.9 cm; Wt 95.0 kg
[~2023-01-29 16:24] MED LIST changes: -CEPH500C2 PO; -DIPH25CA83 PO; -IBUP-2028 MT
[2023-01-29 16:43] VITALS: BP 160/70; PULSE 154; RESP 18; TEMP 98; O2SAT 99
[2023-01-29] MEDS ORDERED: HALOPERIDOL LACTATE 5MG/ML VIAL IM ONE (16:45)
[2023-01-29] MEDS ORDERED: DIPHENHYDRAMINE 50MG/ML VIAL IV ONE (16:45)
[2023-01-29] MEDS ORDERED: LORAZEPAM 4MG/ML VIAL IV NR (16:45)
[2023-01-29] MEDS ORDERED: LORAZEPAM 2MG/ML CPJ IV ONE (16:45)
== END 2023-01-29 20:17 | disposition home or self-care (01) ==
LOC: ER 16:24
DX: F23 Brief psychotic disorder (principal); R07.89 Other chest pain; F15.10 Other stimulant abuse, uncomplicated
CPT/HCPCS: 99291; 96374; 96375; 96372; J1200; J1630; J2060

== ENCOUNTER 2023-02-24 16:33 | Emergency (ER) | payer MEDICAID ==
[~2023-02-24] VITALS: Ht 175.3 cm; Wt 84.0 kg
[2023-02-24] MEDS ORDERED: DIPHENHYDRAMINE 50MG/ML VIAL IM STA (16:42)
[2023-02-24 16:46] VITALS: O2SAT 99
[2023-02-24 19:48] LABS: BASOPHILS % 0.2 % (0.0-2.0); HEMATOCRIT. 39.5 % (42.0-52.0); HEMOGLOBIN. 12.6 g/dL (14.0-18.0); LYMPHOCYTES % 18.3 % (20.0-50.0); MEAN CORPUSCULAR HEMOGLOBIN 26.3 pg (28.0-32.0); MEAN CORPUSCULAR HGB CONC 31.9 g/dL (31.0-37.0); MEAN CORPUSCULAR VOLUME 82.2 fL (80.0-94.0); MONOCYTES % 6.5 % (2.0-8.0); PLATELET 264 x1000/uL (130-400); RED CELL DISTRIBUTION WIDTH 21.4 % (11.6-14.6)
[2023-02-24 20:00] LABS: ACETAMINOPHEN < 2 ug/mL (10-30); ALANINE AMINOTRANSFERASE 49 IU/L (10-49); ALBUMIN 4.5 g/dL (3.2-4.8); ASPARTATE AMINOTRANSFERASE 53 IU/L (<34); BILIRUBIN TOTAL 0.4 mg/dL (0.1-1.0); CALCIUM 9.4 mg/dL (8.7-10.4); CARBON DIOXIDE 29 mEq/L (21-32); CHLORIDE 102 mEq/L (98-107); CREATININE 1.3 mg/dL (0.6-1.3); GLUCOSE 91 mg/dL (70-105); POTASSIUM 4.6 mEq/L (3.5-5.1); PROTEIN TOTAL 8.5 g/dL (6.0-8.3); SODIUM 136 mEq/L (136-145); UREA NITROGEN BLOOD 17 mg/dL (9-23)
[2023-02-24 20:40] LABS: ETHANOL BLOOD < 10 mg/dL (<10)
[2023-02-25 12:41] LABS: CLARITY URINE CLOUDY (CLEAR); COLOR URINE YELLOW (YELLOW); GLUCOSE URINE NEGATIVE (NEGATIVE); KETONES URINE TRACE (NEGATIVE); LEUKOCYTE ESTERASE URINE NEGATIVE (NEGATIVE); NITRITE URINE NEGATIVE (NEGATIVE); OCCULT BLOOD URINE NEGATIVE (NEGATIVE); PH URINE 7.5 (4.5-8.0); PROTEIN URINE NEGATIVE (NEGATIVE); SPECIFIC GRAVITY URINE 1.024 (1.005-1.030); UROBILINOGEN URINE 0.2 E.U./dL (0.2-1.0)
[2023-02-25 13:17] LABS: BACTERIA URINE FEW; RBC URINE NONE SEEN /hpf (0-2); SQUAMOUS EPITHELIAL CELL URINE NONE SEEN /lpf (RARE/1+); WBC URINE 0-2 /hpf (0-2); YEAST URINE NONE SEEN
[2023-02-25 13:42] LABS: *AMPHETAMINES SCREEN URINE PRESUMPTIVE POSITIVE (NEGATIVE); *BARBITURATES SCREEN URINE NEGATIVE (NEGATIVE); *BENZODIAZEPINES SCREEN URINE NEGATIVE (NEGATIVE); *COCAINE SCREEN URINE NEGATIVE (NEGATIVE); ECSTASY MDMA SCREEN URINE NEGATIVE (NEGATIVE); METHADONE URINE SCREEN Neg (NEGATIVE); OPIATES URINE SCREEN NEGATIVE (NEGATIVE); PHENCYCLIDINE URINE SCREEN NEGATIVE (NEGATIVE)
[2023-02-25 20:00] VITALS: BP 143/53; PULSE 80; RESP 18; TEMP 98.6
== END 2023-02-25 20:45 | disposition home or self-care (01) ==
LOC: ER 16:33
DX: F23 Brief psychotic disorder (principal); F15.10 Other stimulant abuse, uncomplicated; Z88.8 Allergy status to other drugs, medicaments and biological substances; Z20.822 Contact with and (suspected) exposure to COVID-19
CPT/HCPCS: 80053; 80307; 80329; 80320; 85025; 36415; 96372; 99285; 87426; 80305; 81003; J1200; C9803; G0480

== ENCOUNTER 2023-03-02 21:19 | Emergency (ER) | payer MEDICAID ==
[~2023-03-02] VITALS: Ht 172.7 cm; Wt 79.0 kg
[2023-03-02 21:31] VITALS: TEMP 98.3
[2023-03-02] MEDS ORDERED: LORAZEPAM 2MG/ML INJ IV STA (21:47)
[2023-03-02] MEDS ORDERED: SODIUM CHLORIDE 0.9% 1,000 ML IV ONE (22:00)
[2023-03-02] MEDS ORDERED: HALOPERIDOL LACTATE 5MG/ML VIAL IM ONE (22:45)
[2023-03-02] MEDS ORDERED: LORAZEPAM 2MG/ML INJ IV NR (23:00)
[2023-03-02] MEDS ORDERED: LORAZEPAM 2MG/ML UD SYRINGE IV NR (23:06)
[2023-03-02 23:08] VITALS: BP 134/89; PULSE 101; RESP 13; O2SAT 98
== END 2023-03-02 23:58 | disposition home or self-care (01) ==
LOC: ER 21:19
DX: F15.90 Other stimulant use, unspecified, uncomplicated (principal); F23 Brief psychotic disorder
CPT/HCPCS: 93005; 96372; 96374; 99285; J1630; J2060; J7030; Z7610; 99284

== ENCOUNTER 2023-03-15 13:49 | Emergency (ER) | payer MEDICAID ==
[~2023-03-15] VITALS: Ht 177.8 cm; Wt 88.0 kg
[2023-03-15] MEDS ORDERED: HALOPERIDOL LACTATE 5MG/ML VIAL IM STA (14:21)
[2023-03-15] MEDS ORDERED: DIPHENHYDRAMINE 50MG/ML VIAL IM STA (14:21)
[2023-03-15] MEDS ORDERED: MIDAZOLAM HCL 2 MG/2 ML VIAL IM ONE ×2 (14:30→21:45)
[2023-03-15 15:25] LABS: BASOPHILS % 0.2 % (0.0-2.0); EOSINOPHILS % 0.1 % (0.0-5.0); HEMATOCRIT. 38.8 % (42.0-52.0); HEMOGLOBIN. 12.5 g/dL (14.0-18.0); LYMPHOCYTES % 7.4 % (20.0-50.0); MEAN CORPUSCULAR HGB CONC 32.2 g/dL (31.0-37.0); MEAN CORPUSCULAR VOLUME 83.6 fL (80.0-94.0); MEAN PLATELET VOLUME 7.2 fl (7.4-10.4); NEUTROPHILS % 87.3 % (40.0-76.0); PLATELET 298 x1000/uL (130-400); RED BLOOD CELL COUNT 4.64 mill/uL (4.7-6.1); RED CELL DISTRIBUTION WIDTH 20.1 % (11.6-14.6); WHITE BLOOD COUNT 10.9 x1000/uL (4.5-11.0)
[2023-03-15 15:39] LABS: ACETAMINOPHEN < 2 ug/mL (10-30); ALANINE AMINOTRANSFERASE 37 IU/L (10-49); ALBUMIN 4.4 g/dL (3.2-4.8); ASPARTATE AMINOTRANSFERASE 33 IU/L (<34); BILIRUBIN TOTAL 0.3 mg/dL (0.1-1.0); CALCIUM 9.6 mg/dL (8.7-10.4); CARBON DIOXIDE 17 mEq/L (21-32); CHLORIDE 105 mEq/L (98-107); ETHANOL BLOOD 126 mg/dL (<10); GLUCOSE 116 mg/dL (70-105); POTASSIUM 3.5 mEq/L (3.5-5.1); PROTEIN TOTAL 8.1 g/dL (6.0-8.3); SODIUM 140 mEq/L (136-145); UREA NITROGEN BLOOD 15 mg/dL (9-23)
[2023-03-15 16:04] LABS: CREATININE 1.7 mg/dL (0.6-1.3)
[2023-03-15 19:11] VITALS: TEMP 98.2
[2023-03-15] MEDS ORDERED: DIPHENHYDRAMINE 50MG/ML VIAL IM PRN (21:30)
[2023-03-15] MEDS ORDERED: HALOPERIDOL LACTATE 5MG/ML VIAL IM ONE (21:45)
[2023-03-15 21:52] VITALS: BP 144/89; PULSE 111; RESP 15; O2SAT 98
[2023-03-16] MEDS ORDERED: LORAZEPAM 1MG TABLET PO ONE (05:15)
[2023-03-16] MEDS ORDERED: DIPHENHYDRAMINE 50MG/ML VIAL IV ONE (05:30)
== END 2023-03-16 15:52 | disposition home or self-care (01) ==
LOC: ER 13:49
DX: R45.1 Restlessness and agitation (principal); F10.129 Alcohol abuse with intoxication, unspecified; F15.10 Other stimulant abuse, uncomplicated; Y90.6 Blood alcohol level of 120-199 mg/100 ml
CPT/HCPCS: 80053; 80307; 80329; 80320; 85025; 36415; 93005; 96372; 99284; J1200; J1630; J2250; Z7610; G0480

== ENCOUNTER 2023-04-03 06:12 | Emergency (ER) | payer MEDICAID ==
[~2023-04-03] VITALS: Ht 170.2 cm; Wt 76.0 kg
[2023-04-03] MEDS: LORAZEPAM 2MG/ML INJ IM ONE (07:42)
[2023-04-03] MEDS: HALOPERIDOL LACTATE 5MG/ML VIAL IM ONE (07:42)
[2023-04-03] MEDS: DIPHENHYDRAMINE 50MG/ML VIAL IM PRN (07:42)
[2023-04-03 08:45] VITALS: O2SAT 99
[2023-04-03 11:05] VITALS: BP 129/75; PULSE 87; RESP 18; TEMP 98.3
== END 2023-04-03 11:06 | disposition home or self-care (01) ==
LOC: ER 06:12
DX: F19.10 Other psychoactive substance abuse, uncomplicated (principal); F15.10 Other stimulant abuse, uncomplicated; Z88.8 Allergy status to other drugs, medicaments and biological substances
CPT/HCPCS: 96372; 99291; J1200; J1630; J2060; Z7610

== ENCOUNTER 2023-04-29 16:14 | Emergency (ER) | payer MEDICAID ==
[~2023-04-29] VITALS: Ht 172.7 cm; Wt 86.2 kg
[2023-04-29 16:26] VITALS: TEMP 99.2
[2023-04-29] MEDS: DIPHENHYDRAMINE 50MG/ML VIAL IM ONE ×2 (18:20→23:44)
[2023-04-29 21:38] LABS: BASOPHILS % 0.8 % (0.0-2.0); EOSINOPHILS % 0.2 % (0.0-5.0); HEMOGLOBIN. 12.9 g/dL (14.0-18.0); LYMPHOCYTES % 25.6 % (20.0-50.0); MEAN CORPUSCULAR HEMOGLOBIN 27.7 pg (28.0-32.0); MEAN CORPUSCULAR VOLUME 83.7 fL (80.0-94.0); MEAN PLATELET VOLUME 7.7 fl (7.4-10.4); MONOCYTES % 7.8 % (2.0-8.0); NEUTROPHILS % 65.6 % (40.0-76.0); PLATELET 290 x1000/uL (130-400); RED BLOOD CELL COUNT 4.65 mill/uL (4.7-6.1); RED CELL DISTRIBUTION WIDTH 17.8 % (11.6-14.6); WHITE BLOOD COUNT 5.9 x1000/uL (4.5-11.0)
[2023-04-29 22:01] LABS: TROPONIN I HIGH SENSITIVITY < 4 ng/L (3.0-53)
[2023-04-29 23:44] VITALS: BP 167/89; PULSE 137; RESP 18; O2SAT 100
[2023-04-29] MEDS: MIDAZOLAM HCL 2 MG/2 ML VIAL IM ONE (23:44)
[2023-04-29] MEDS: OLANZAPINE 10 MG/VIAL IM ONE (23:44)
[2023-04-30 05:47] LABS: ACETAMINOPHEN < 2 ug/mL (10-30); ETHANOL BLOOD < 10 mg/dL (<10)
[2023-04-30] MEDS: APIXABAN 5 MG TABLET PO SCH (06:00)
== END 2023-04-30 13:56 | disposition home or self-care (01) ==
LOC: ER 16:14
DX: R46.2 Strange and inexplicable behavior (principal)
CPT/HCPCS: 83880; 85025; 85379; 84484; 36415 ×2; 96372; 99291; 80307; 80329; 80320; J3490; J1200; J2250; Z7610; G0480

== ENCOUNTER 2023-05-01 02:55 | Emergency (ER) | payer MEDICAID ==
[~2023-05-01] VITALS: Ht 185.4 cm; Wt 90.0 kg
[2023-05-01 02:59] VITALS: O2SAT 97
[2023-05-01] MEDS ORDERED: DIPHENHYDRAMINE 50MG/ML VIAL IM PRN (03:15)
[2023-05-01 06:55] VITALS: BP 141/97; PULSE 123; RESP 20; TEMP 98.5
[2023-05-01] MEDS: OLANZAPINE 10 MG/VIAL IM ONE (07:34)
[2023-05-01 08:01] LABS: BASOPHILS % 0.4 % (0.0-2.0); HEMATOCRIT. 40.2 % (42.0-52.0); HEMOGLOBIN. 13.4 g/dL (14.0-18.0); MEAN CORPUSCULAR HEMOGLOBIN 27.7 pg (28.0-32.0); MEAN CORPUSCULAR HGB CONC 33.5 g/dL (31.0-37.0); MEAN CORPUSCULAR VOLUME 82.9 fL (80.0-94.0); MEAN PLATELET VOLUME 7.3 fl (7.4-10.4); MONOCYTES % 9.3 % (2.0-8.0); NEUTROPHILS % 73.3 % (40.0-76.0); PLATELET 292 x1000/uL (130-400); RED BLOOD CELL COUNT 4.84 mill/uL (4.7-6.1)
[2023-05-01 08:08] LABS: ACETAMINOPHEN < 2 ug/mL (10-30); CALCIUM 9.5 mg/dL (8.7-10.4); CARBON DIOXIDE 25 mEq/L (21-32); CHLORIDE 102 mEq/L (98-107); CREATININE 1.3 mg/dL (0.6-1.3); GLUCOSE 91 mg/dL (70-105); POTASSIUM 3.8 mEq/L (3.5-5.1); SODIUM 137 mEq/L (136-145); UREA NITROGEN BLOOD 21 mg/dL (9-23)
[2023-05-01 08:59] LABS: ETHANOL BLOOD < 10 mg/dL (<10)
== END 2023-05-01 12:46 | disposition home or self-care (01) ==
LOC: ER 03:03
DX: T43.621A Poisoning by amphetamines, accidental (unintentional), initial encounter (principal); Z88.8 Allergy status to other drugs, medicaments and biological substances; Y92.89 Other specified places as the place of occurrence of the external cause
CPT/HCPCS: 80048; 80307; 80329; 80320; 85025; 36415; 96372; 99291; J3490; J1200; G0480

== ENCOUNTER 2023-06-01 15:30 | Emergency (ER) | payer MEDICAID, OTHER ==
[~2023-06-01] VITALS: Ht 177.8 cm; Wt 85.0 kg
[2023-06-01 15:37] VITALS: BP 127/53; PULSE 152; RESP 18; TEMP 98.2; O2SAT 100
[2023-06-01] MEDS: LORAZEPAM 1MG TABLET PO ONE (16:32)
[2023-06-01] MEDS: ASPIRIN 81MG TABLET PO ONE (16:32)
[2023-06-01 16:54] LABS: BASOPHILS % 0.4 % (0.0-2.0); EOSINOPHILS % 0.1 % (0.0-5.0); HEMATOCRIT. 42.9 % (42.0-52.0); HEMOGLOBIN. 14.4 g/dL (14.0-18.0); LYMPHOCYTES % 26.5 % (20.0-50.0); MEAN CORPUSCULAR HEMOGLOBIN 28.4 pg (28.0-32.0); MEAN CORPUSCULAR HGB CONC 33.6 g/dL (31.0-37.0); MEAN CORPUSCULAR VOLUME 84.4 fL (80.0-94.0); MEAN PLATELET VOLUME 7.7 fl (7.4-10.4); PLATELET 355 x1000/uL (130-400); RED BLOOD CELL COUNT 5.08 mill/uL (4.7-6.1); RED CELL DISTRIBUTION WIDTH 16.1 % (11.6-14.6); WHITE BLOOD COUNT 6.9 x1000/uL (4.5-11.0)
[2023-06-01 17:19] LABS: ALANINE AMINOTRANSFERASE 23 IU/L (10-49); ASPARTATE AMINOTRANSFERASE 29 IU/L (<34); BILIRUBIN TOTAL 0.3 mg/dL (0.1-1.0); CALCIUM 9.5 mg/dL (8.7-10.4); CARBON DIOXIDE 22 mEq/L (21-32); CHLORIDE 102 mEq/L (98-107); CREATININE 1.5 mg/dL (0.6-1.3); ETHANOL BLOOD 70 mg/dL (<10); GLUCOSE 104 mg/dL (70-105); POTASSIUM 3.9 mEq/L (3.5-5.1); PROTEIN TOTAL 9.1 g/dL (6.0-8.3); SODIUM 139 mEq/L (136-145); UREA NITROGEN BLOOD 14 mg/dL (9-23)
[2023-06-01 17:21] LABS: TROPONIN I HIGH SENSITIVITY < 4 ng/L (3.0-53)
== END 2023-06-01 16:53 | disposition left against medical advice (07) ==
LOC: ER 15:30
DX: F15.10 Other stimulant abuse, uncomplicated (principal); R00.0 Tachycardia, unspecified; Z88.8 Allergy status to other drugs, medicaments and biological substances
CPT/HCPCS: 36415; 80053; 80320; 83880; 84484; 85025; 93005; 99284; G0480

== ENCOUNTER 2023-06-02 05:42 | Emergency (ER) | payer OTHER ==
[~2023-06-02] VITALS: Ht 177.8 cm; Wt 90.0 kg
[2023-06-02] MEDS ORDERED: HALOPERIDOL LACTATE 5MG/ML VIAL IM STA (05:47)
[2023-06-02] MEDS ORDERED: LORAZEPAM 2MG/ML INJ IM STA (05:47)
[2023-06-02] MEDS: DIPHENHYDRAMINE 50MG/ML VIAL IM STA (06:16)
[2023-06-02] MEDS: MIDAZOLAM HCL 2 MG/2 ML VIAL IM ONE ×2 (06:16→09:30)
[2023-06-02 08:30] LABS: HEMATOCRIT. 43.9 % (42.0-52.0); HEMOGLOBIN. 14.9 g/dL (14.0-18.0); MEAN CORPUSCULAR HEMOGLOBIN 28.2 pg (28.0-32.0); MEAN CORPUSCULAR HGB CONC 33.9 g/dL (31.0-37.0); MEAN CORPUSCULAR VOLUME 83.2 fL (80.0-94.0); MEAN PLATELET VOLUME 7.7 fl (7.4-10.4); PLATELET 331 x1000/uL (130-400); RED BLOOD CELL COUNT 5.28 mill/uL (4.7-6.1); RED CELL DISTRIBUTION WIDTH 16.3 % (11.6-14.6); WHITE BLOOD COUNT 16.5 x1000/uL (4.5-11.0)
[2023-06-02 08:32] LABS: DIFFERENTIAL COMMENT 1
[2023-06-02 09:20] LABS: ACETAMINOPHEN < 2 ug/mL (10-30); ALANINE AMINOTRANSFERASE 47 IU/L (10-49); ALBUMIN 5.5 g/dL (3.2-4.8); ASPARTATE AMINOTRANSFERASE 175 IU/L (<34); BILIRUBIN TOTAL 0.5 mg/dL (0.1-1.0); CALCIUM 10.1 mg/dL (8.7-10.4); CARBON DIOXIDE 19 mEq/L (21-32); CHLORIDE 104 mEq/L (98-107); GLUCOSE 104 mg/dL (70-105); POTASSIUM 3.4 mEq/L (3.5-5.1); PROTEIN TOTAL 9.8 g/dL (6.0-8.3); SODIUM 140 mEq/L (136-145); UREA NITROGEN BLOOD 21 mg/dL (9-23)
[2023-06-02 09:30] LABS: CREATINE KINASE 8222 IU/L (46-171); CREATININE 2.2 mg/dL (0.6-1.3); ETHANOL BLOOD < 10 mg/dL (<10)
[2023-06-02 10:07] LABS: PLATELET ESTIMATE NORMAL
[2023-06-02 10:22] VITALS: O2SAT 96
[2023-06-02 11:24] VITALS: BP 152/92; PULSE 98; RESP 18; TEMP 98
== END 2023-06-02 11:28 | disposition home or self-care (01) ==
LOC: ER 05:42
DX: F41.9 Anxiety disorder, unspecified (principal); F15.10 Other stimulant abuse, uncomplicated; Z88.5 Allergy status to narcotic agent; Z98.890 Other specified postprocedural states
CPT/HCPCS: 80053; 80307; 80329; 80320; 82550; 85025; 36415; 96372; 99291; J1200; J2250; Z7610 ×2; G0480

== ENCOUNTER 2023-06-14 16:44 | Emergency (ER) | payer OTHER ==
[~2023-06-14] VITALS: Ht 177.8 cm; Wt 91.0 kg
[2023-06-14 16:50] VITALS: BP 111/63; PULSE 154; RESP 18; TEMP 98.2; O2SAT 98
[2023-06-14] MEDS ORDERED: LORAZEPAM 1MG TABLET PO ONE (17:45)
[2023-06-14] MEDS ORDERED: DIPHENHYDRAMINE 25MG CAPSULE PO NR (18:15)
[2023-06-14] MEDS ORDERED: DIPHENHYDRAMINE 50MG CAPSULE PO ONE (18:15)
[2023-06-14] MEDS ORDERED: DIPHENHYDRAMINE 50MG CAPSULE PO NR (19:00)
== END 2023-06-14 18:26 | disposition home or self-care (01) ==
LOC: ER 16:44
DX: F15.10 Other stimulant abuse, uncomplicated (principal); R45.1 Restlessness and agitation; F41.9 Anxiety disorder, unspecified; I25.10 Atherosclerotic heart disease of native coronary artery without angina pectoris
CPT/HCPCS: 99283; Q0163

== ENCOUNTER 2023-06-14 19:10 | Emergency (ER) | payer OTHER ==
[~2023-06-14] VITALS: Ht 175.3 cm; Wt 73.0 kg
[2023-06-14] MEDS: MIDAZOLAM HCL 2 MG/2 ML VIAL IV ONE (19:57)
[2023-06-14] MEDS: MIDAZOLAM HCL 2 MG/2 ML VIAL IM ONE (20:49)
[2023-06-14 22:48] LABS: HEMATOCRIT. 40.4 % (42.0-52.0); HEMOGLOBIN. 13.1 g/dL (14.0-18.0); MEAN CORPUSCULAR HEMOGLOBIN 26.9 pg (28.0-32.0); MEAN CORPUSCULAR HGB CONC 32.4 g/dL (31.0-37.0); MEAN CORPUSCULAR VOLUME 83.1 fL (80.0-94.0); MEAN PLATELET VOLUME 7.4 fl (7.4-10.4); PLATELET 259 x1000/uL (130-400); RED BLOOD CELL COUNT 4.86 mill/uL (4.7-6.1); RED CELL DISTRIBUTION WIDTH 16.7 % (11.6-14.6)
[2023-06-14 22:49] LABS: DIFFERENTIAL COMMENT 1
[2023-06-14 23:05] LABS: PLATELET ESTIMATE NORMAL
[2023-06-14 23:32] LABS: ACETAMINOPHEN < 2 ug/mL (10-30); ALANINE AMINOTRANSFERASE 31 IU/L (10-49); ALBUMIN 4.8 g/dL (3.2-4.8); ASPARTATE AMINOTRANSFERASE 47 IU/L (<34); BILIRUBIN TOTAL 0.4 mg/dL (0.1-1.0); CALCIUM 9.3 mg/dL (8.7-10.4); CARBON DIOXIDE 22 mEq/L (21-32); CHLORIDE 109 mEq/L (98-107); GLUCOSE 108 mg/dL (70-105); POTASSIUM 4.1 mEq/L (3.5-5.1); PROTEIN TOTAL 8.8 g/dL (6.0-8.3); SODIUM 141 mEq/L (136-145); UREA NITROGEN BLOOD 20 mg/dL (9-23)
[2023-06-14 23:46] LABS: CREATININE 1.5 mg/dL (0.6-1.3); ETHANOL BLOOD < 10 mg/dL (<10)
[2023-06-16] MEDS: DIPHENHYDRAMINE 50MG/ML VIAL IM PRN (05:10)
[2023-06-16 05:41] VITALS: O2SAT 100
[2023-06-16] MEDS: MIDAZOLAM HCL 2 MG/2 ML VIAL IM ONE (05:41)
[2023-06-16] MEDS: OLANZAPINE 10 MG/VIAL IM ONE (05:44)
[2023-06-16 13:10] LABS: CLARITY URINE CLEAR (CLEAR); COLOR URINE YELLOW (YELLOW); GLUCOSE URINE NEGATIVE (NEGATIVE); KETONES URINE TRACE (NEGATIVE); LEUKOCYTE ESTERASE URINE NEGATIVE (NEGATIVE); NITRITE URINE NEGATIVE (NEGATIVE); OCCULT BLOOD URINE NEGATIVE (NEGATIVE); PROTEIN URINE 1+ (NEGATIVE); SPECIFIC GRAVITY URINE 1.035 (1.005-1.030); UROBILINOGEN URINE 0.2 E.U./dL (0.2-1.0)
[2023-06-16 13:39] LABS: *AMPHETAMINES SCREEN URINE PRESUMPTIVE POSITIVE (NEGATIVE); *BARBITURATES SCREEN URINE NEGATIVE (NEGATIVE); *BENZODIAZEPINES SCREEN URINE PRESUMPTIVE POSITIVE (NEGATIVE); *COCAINE SCREEN URINE NEGATIVE (NEGATIVE); CANNABINOID URINE SCREEN NEGATIVE (NEGATIVE); ECSTASY MDMA SCREEN URINE NEGATIVE (NEGATIVE); METHADONE URINE SCREEN Neg (NEGATIVE); OPIATES URINE SCREEN NEGATIVE (NEGATIVE); PHENCYCLIDINE URINE SCREEN NEGATIVE (NEGATIVE)
[2023-06-16 14:13] LABS: MUCUS URINE 3+ /lpf (NONE/TRACE); SQUAMOUS EPITHELIAL CELL URINE RARE /lpf (RARE/1+)
[2023-06-16 14:14] LABS: BACTERIA URINE TRACE; RBC URINE NONE SEEN /hpf (0-2); WBC URINE 0-2 /hpf (0-2)
[2023-06-16 20:30] VITALS: BP 115/70; PULSE 64; RESP 18; TEMP 98.4
== END 2023-06-16 23:40 ==
LOC: ER 19:10
DX: F15.90 Other stimulant use, unspecified, uncomplicated (principal); I25.10 Atherosclerotic heart disease of native coronary artery without angina pectoris; Z20.822 Contact with and (suspected) exposure to COVID-19
CPT/HCPCS: 80053; 80307; 80329; 80320; 85025; 36415; 96372 ×2; 96374; 99285; 87426; 80305; 81003; J2250 ×2; Z7610 ×3; J3490; J1200; G0480

== ENCOUNTER 2023-06-26 14:51 | Emergency (ER) | payer OTHER ==
[~2023-06-26] VITALS: Ht 185.4 cm; Wt 82.0 kg
[2023-06-26] MEDS: OLANZAPINE 10 MG/VIAL IM STA (14:58)
[2023-06-26 15:04] VITALS: O2SAT 100
[2023-06-26] MEDS: DIPHENHYDRAMINE 50MG/ML VIAL IM STA (15:08)
[2023-06-26] MEDS: LORAZEPAM 2MG/ML INJ IM STA (15:48)
[2023-06-26 16:42] LABS: BASOPHILS % 0.3 % (0.0-2.0); HEMATOCRIT. 42.2 % (42.0-52.0); HEMOGLOBIN. 14.2 g/dL (14.0-18.0); LYMPHOCYTES % 12.2 % (20.0-50.0); MEAN CORPUSCULAR HEMOGLOBIN 28.3 pg (28.0-32.0); MEAN CORPUSCULAR HGB CONC 33.6 g/dL (31.0-37.0); MEAN CORPUSCULAR VOLUME 84.2 fL (80.0-94.0); MEAN PLATELET VOLUME 7.6 fl (7.4-10.4); MONOCYTES % 5.3 % (2.0-8.0); NEUTROPHILS % 82.2 % (40.0-76.0); PLATELET 291 x1000/uL (130-400); RED BLOOD CELL COUNT 5.01 mill/uL (4.7-6.1); RED CELL DISTRIBUTION WIDTH 16.5 % (11.6-14.6); WHITE BLOOD COUNT 6.8 x1000/uL (4.5-11.0)
[2023-06-26 16:46] LABS: CARBON DIOXIDE 25 mEq/L (21-32); CHLORIDE 104 mEq/L (98-107); POTASSIUM 3.8 mEq/L (3.5-5.1); SODIUM 138 mEq/L (136-145)
[2023-06-26 16:47] LABS: CALCIUM 9.6 mg/dL (8.7-10.4)
[2023-06-26 16:51] LABS: CREATININE 1.2 mg/dL (0.6-1.3)
[2023-06-26 16:52] LABS: GLUCOSE 92 mg/dL (70-105); UREA NITROGEN BLOOD 8 mg/dL (9-23)
[2023-06-26 16:54] LABS: ALANINE AMINOTRANSFERASE 30 IU/L (10-49); ALBUMIN 5.1 g/dL (3.2-4.8); ASPARTATE AMINOTRANSFERASE 30 IU/L (<34); BILIRUBIN TOTAL 0.4 mg/dL (0.1-1.0); PROTEIN TOTAL 9.1 g/dL (6.0-8.3)
[2023-06-26 16:55] LABS: ETHANOL BLOOD < 10 mg/dL (<10)
[2023-06-27 04:43] LABS: CLARITY URINE CLEAR (CLEAR); COLOR URINE YELLOW (YELLOW); GLUCOSE URINE NEGATIVE (NEGATIVE); KETONES URINE NEGATIVE (NEGATIVE); LEUKOCYTE ESTERASE URINE NEGATIVE (NEGATIVE); NITRITE URINE NEGATIVE (NEGATIVE); OCCULT BLOOD URINE NEGATIVE (NEGATIVE); PH URINE 6.5 (4.5-8.0); PROTEIN URINE NEGATIVE (NEGATIVE); SPECIFIC GRAVITY URINE 1.005 (1.005-1.030); UROBILINOGEN URINE 0.2 E.U./dL (0.2-1.0)
[2023-06-27 04:49] LABS: *AMPHETAMINES SCREEN URINE PRESUMPTIVE POSITIVE (NEGATIVE); *BARBITURATES SCREEN URINE NEGATIVE (NEGATIVE); *BENZODIAZEPINES SCREEN URINE NEGATIVE (NEGATIVE); *COCAINE SCREEN URINE NEGATIVE (NEGATIVE); METHADONE URINE SCREEN NEGATIVE (NEGATIVE)
[2023-06-27 04:50] LABS: CANNABINOID URINE SCREEN NEGATIVE (NEGATIVE); ECSTASY MDMA SCREEN URINE NEGATIVE (NEGATIVE); OPIATES URINE SCREEN NEGATIVE (NEGATIVE); PHENCYCLIDINE URINE SCREEN NEGATIVE (NEGATIVE)
[2023-06-27 06:37] VITALS: BP 126/86; PULSE 68; RESP 14; TEMP 97.8
== END 2023-06-27 07:45 | disposition home or self-care (01) ==
LOC: ER 14:54
DX: F22 Delusional disorders (principal); F15.10 Other stimulant abuse, uncomplicated
CPT/HCPCS: 80053; 80320; 85025; 36415; 96372; 99285; 80305; 81003; J3490; J1200; J2060; Z7610 ×2; G0480

== ENCOUNTER 2023-06-27 12:25 | Emergency (ER) | payer OTHER ==
[~2023-06-27] VITALS: Ht 177.8 cm; Wt 80.0 kg
[2023-06-27 12:39] VITALS: O2SAT 98
[2023-06-27] MEDS ORDERED: OLANZAPINE 10 MG/VIAL IM ONE (13:15)
[2023-06-27] MEDS: OLANZAPINE 10 MG/VIAL IM ONE (13:36)
[2023-06-27] MEDS: DIPHENHYDRAMINE 50MG/ML VIAL IM ONE (13:36)
[2023-06-27 20:13] LABS: BASOPHILS % 0.2 % (0.0-2.0); EOSINOPHILS % 0.2 % (0.0-5.0); HEMATOCRIT. 44.5 % (42.0-52.0); HEMOGLOBIN. 14.6 g/dL (14.0-18.0); LYMPHOCYTES % 10.1 % (20.0-50.0); MEAN CORPUSCULAR HEMOGLOBIN 27.9 pg (28.0-32.0); MEAN CORPUSCULAR HGB CONC 32.7 g/dL (31.0-37.0); MEAN CORPUSCULAR VOLUME 85.5 fL (80.0-94.0); MEAN PLATELET VOLUME 7.6 fl (7.4-10.4); NEUTROPHILS % 81.5 % (40.0-76.0); PLATELET 316 x1000/uL (130-400); RED BLOOD CELL COUNT 5.21 mill/uL (4.7-6.1); WHITE BLOOD COUNT 12.4 x1000/uL (4.5-11.0)
[2023-06-27 20:52] LABS: CARBON DIOXIDE 24 mEq/L (21-32); CHLORIDE 104 mEq/L (98-107); POTASSIUM 4.8 mEq/L (3.5-5.1); SODIUM 140 mEq/L (136-145)
[2023-06-27 20:53] LABS: CALCIUM 10.1 mg/dL (8.7-10.4)
[2023-06-27 20:58] LABS: GLUCOSE 100 mg/dL (70-105); UREA NITROGEN BLOOD 17 mg/dL (9-23)
[2023-06-27 20:59] LABS: ALANINE AMINOTRANSFERASE 53 IU/L (10-49); ASPARTATE AMINOTRANSFERASE 122 IU/L (<34)
[2023-06-27 21:00] LABS: ALBUMIN 5.3 g/dL (3.2-4.8); BILIRUBIN TOTAL 0.6 mg/dL (0.1-1.0); PROTEIN TOTAL 9.3 g/dL (6.0-8.3)
[2023-06-27 21:01] LABS: ACETAMINOPHEN < 2 ug/mL (10-30)
[2023-06-27 21:02] LABS: CREATININE 1.6 mg/dL (0.6-1.3); ETHANOL BLOOD < 10 mg/dL (<10)
[2023-06-27 22:29] LABS: *AMPHETAMINES SCREEN URINE PRESUMPTIVE POSITIVE (NEGATIVE)
[2023-06-27 22:30] LABS: *BARBITURATES SCREEN URINE NEGATIVE (NEGATIVE); *BENZODIAZEPINES SCREEN URINE NEGATIVE (NEGATIVE); *COCAINE SCREEN URINE NEGATIVE (NEGATIVE); CANNABINOID URINE SCREEN PRESUMPTIVE POSITIVE (NEGATIVE); ECSTASY MDMA SCREEN URINE CONF.TEST INDICATED (NEGATIVE); METHADONE URINE SCREEN NEGATIVE (NEGATIVE); OPIATES URINE SCREEN NEGATIVE (NEGATIVE); PHENCYCLIDINE URINE SCREEN NEGATIVE (NEGATIVE)
[2023-06-27] MEDS ORDERED: DIPHENHYDRAMINE 25MG CAPSULE PO ONE (22:30)
[2023-06-27 22:36] LABS: CLARITY URINE CLEAR (CLEAR); COLOR URINE YELLOW (YELLOW)
[2023-06-27 22:37] LABS: GLUCOSE URINE NEGATIVE (NEGATIVE); KETONES URINE 1+ (NEGATIVE); PROTEIN URINE 1+ (NEGATIVE)
[2023-06-27 22:38] LABS: LEUKOCYTE ESTERASE URINE NEGATIVE (NEGATIVE); NITRITE URINE NEGATIVE (NEGATIVE); OCCULT BLOOD URINE 1+ (NEGATIVE); UROBILINOGEN URINE 0.2 E.U./dL (0.2-1.0)
[2023-06-27 22:39] LABS: BACTERIA URINE 1+
[2023-06-27 22:40] LABS: SQUAMOUS EPITHELIAL CELL URINE FEW /lpf (RARE/1+); WBC URINE 0-2 /hpf (0-2)
[2023-06-27] MEDS: DIPHENHYDRAMINE 25MG CAPSULE PO NR (22:52)
[2023-06-27] MEDS: DIPHENHYDRAMINE 25MG CAPSULE PO ONE (22:52)
[2023-06-28] MEDS: ZIPRASIDONE MESYLATE 20MG/VIAL IM ONE (03:30)
[2023-06-28 09:19] VITALS: BP 139/87; PULSE 99; RESP 18; TEMP 97.9
== END 2023-06-28 09:19 | disposition home or self-care (01) ==
LOC: ER 13:29
DX: F15.10 Other stimulant abuse, uncomplicated (principal); I25.10 Atherosclerotic heart disease of native coronary artery without angina pectoris; Z20.822 Contact with and (suspected) exposure to COVID-19
CPT/HCPCS: 80053; 80305; 81003; 80307; 80329; 80320; 85025; 36415; 96372 ×2; 99291; 87426; Q0163; J3490; J1200; J3486; G0480

== ENCOUNTER 2023-07-31 10:13 | Emergency (ER) | payer OTHER ==
[~2023-07-31] VITALS: Ht 172.7 cm; Wt 75.0 kg
[2023-07-31 10:22] VITALS: O2SAT 98
[2023-07-31] MEDS ORDERED: ASPIRIN 325MG TABLET PO ONE (10:30)
[2023-07-31 11:10] LABS: BASOPHILS % 0.6 % (0.0-2.0); EOSINOPHILS % 0.2 % (0.0-5.0); HEMATOCRIT. 38.5 % (42.0-52.0); LYMPHOCYTES % 18.4 % (20.0-50.0); MEAN CORPUSCULAR HEMOGLOBIN 28.7 pg (28.0-32.0); MEAN CORPUSCULAR HGB CONC 33.7 g/dL (31.0-37.0); MEAN CORPUSCULAR VOLUME 85.2 fL (80.0-94.0); MEAN PLATELET VOLUME 7.6 fl (7.4-10.4); MONOCYTES % 12.1 % (2.0-8.0); NEUTROPHILS % 68.7 % (40.0-76.0); PLATELET 296 x1000/uL (130-400); RED BLOOD CELL COUNT 4.52 mill/uL (4.7-6.1); RED CELL DISTRIBUTION WIDTH 16.3 % (11.6-14.6); WHITE BLOOD COUNT 4.9 x1000/uL (4.5-11.0)
[2023-07-31 11:15] LABS: CHLORIDE 106 mEq/L (98-107); SODIUM 140 mEq/L (136-145)
[2023-07-31 11:16] LABS: CALCIUM 9.7 mg/dL (8.7-10.4); CARBON DIOXIDE 25 mEq/L (21-32)
[2023-07-31 11:21] LABS: CREATININE 1.3 mg/dL (0.6-1.3); GLUCOSE 100 mg/dL (70-105); UREA NITROGEN BLOOD 12 mg/dL (9-23)
[2023-07-31 11:22] LABS: TROPONIN I HIGH SENSITIVITY 5 ng/L (3.0-53)
[2023-07-31] MEDS: ASPIRIN 325MG TABLET PO NR (13:31)
[2023-07-31 14:11] VITALS: BP 148/106; PULSE 106; RESP 16; TEMP 98.4
== END 2023-07-31 14:56 | disposition short-term general hospital (02) ==
LOC: ER 10:17
DX: R07.9 Chest pain, unspecified (principal); F19.10 Other psychoactive substance abuse, uncomplicated; F15.90 Other stimulant use, unspecified, uncomplicated; Z88.8 Allergy status to other drugs, medicaments and biological substances
CPT/HCPCS: 80048; 85025; 84484; 36415; 71045; 93005; 99285; Z7610

== ENCOUNTER 2023-09-05 04:35 | Emergency (ER) | payer OTHER ==
[~2023-09-05] VITALS: Ht 182.9 cm; Wt 100.0 kg
[~2023-09-05 04:35] MED LIST changes: +APIX5TAB MT; +APIX5TAB PO; +ARIP15TA PO; +B50 PO; +BUSP5TAB3 PO; +CHOL2000 PO; +CYAN-117 PO; +FERR-63 PO; +GABA-529 PO; +OLAN15TA35 PO; +SERT-422 PO; +VITA-358 PO
[2023-09-05] MEDS: ZIPRASIDONE MESYLATE 20MG/VIAL IM STA (04:43)
[2023-09-05] MEDS: DIPHENHYDRAMINE 50MG/ML VIAL IM STA (04:43)
[2023-09-05] MEDS ORDERED: LORAZEPAM 2MG/ML INJ IV STA (04:43)
[2023-09-05 04:48] VITALS: O2SAT 98
[2023-09-05] MEDS: LORAZEPAM 2MG/ML INJ IM ONE (04:55)
[2023-09-05 06:02] LABS: BASOPHILS % 0.3 % (0.0-2.0); EOSINOPHILS % 0.1 % (0.0-5.0); HEMATOCRIT. 35.9 % (42.0-52.0); HEMOGLOBIN. 11.6 g/dL (14.0-18.0); LYMPHOCYTES % 13.7 % (20.0-50.0); MEAN CORPUSCULAR HGB CONC 32.4 g/dL (31.0-37.0); MEAN CORPUSCULAR VOLUME 86.3 fL (80.0-94.0); MEAN PLATELET VOLUME 7.3 fl (7.4-10.4); MONOCYTES % 10.1 % (2.0-8.0); NEUTROPHILS % 75.8 % (40.0-76.0); PLATELET 281 x1000/uL (130-400); RED BLOOD CELL COUNT 4.15 mill/uL (4.7-6.1); RED CELL DISTRIBUTION WIDTH 14.9 % (11.6-14.6); WHITE BLOOD COUNT 6.3 x1000/uL (4.5-11.0)
[2023-09-05 06:16] LABS: CLARITY URINE CLEAR (CLEAR); COLOR URINE YELLOW (YELLOW); GLUCOSE URINE NEGATIVE (NEGATIVE); KETONES URINE NEGATIVE (NEGATIVE); LEUKOCYTE ESTERASE URINE NEGATIVE (NEGATIVE); NITRITE URINE NEGATIVE (NEGATIVE); OCCULT BLOOD URINE TRACE (NEGATIVE); PH URINE 5.5 (4.5-8.0); PROTEIN URINE 1+ (NEGATIVE); SPECIFIC GRAVITY URINE 1.031 (1.005-1.030)
[2023-09-05 06:16] LABS: CARBON DIOXIDE 23 mEq/L (21-32); CHLORIDE 110 mEq/L (98-107); POTASSIUM 3.4 mEq/L (3.5-5.1); SODIUM 143 mEq/L (136-145)
[2023-09-05 06:17] LABS: CALCIUM 9.4 mg/dL (8.7-10.4)
[2023-09-05 06:21] LABS: CREATININE 1.4 mg/dL (0.6-1.3); GLUCOSE 99 mg/dL (70-105)
[2023-09-05 06:22] LABS: UREA NITROGEN BLOOD 16 mg/dL (9-23)
[2023-09-05 06:24] LABS: ACETAMINOPHEN < 2 ug/mL (10-30)
[2023-09-05 06:32] LABS: ETHANOL BLOOD < 10 mg/dL (<10)
[2023-09-05 06:44] LABS: *AMPHETAMINES SCREEN URINE PRESUMPTIVE POSITIVE (NEGATIVE); *BARBITURATES SCREEN URINE NEGATIVE (NEGATIVE); *BENZODIAZEPINES SCREEN URINE NEGATIVE (NEGATIVE)
[2023-09-05 06:45] LABS: *COCAINE SCREEN URINE NEGATIVE (NEGATIVE); CANNABINOID URINE SCREEN PRESUMPTIVE POSITIVE (NEGATIVE); ECSTASY MDMA SCREEN URINE CONF.TEST INDICATED (NEGATIVE); METHADONE URINE SCREEN NEGATIVE (NEGATIVE); OPIATES URINE SCREEN NEGATIVE (NEGATIVE); PHENCYCLIDINE URINE SCREEN NEGATIVE (NEGATIVE)
[2023-09-05 07:05] LABS: MUCUS URINE TRACE /lpf (NONE/TRACE)
[2023-09-05 07:07] LABS: SQUAMOUS EPITHELIAL CELL URINE NONE SEEN /lpf (RARE/1+)
[2023-09-05 07:08] LABS: BACTERIA URINE TRACE
[2023-09-05 07:09] LABS: WBC URINE 0-2 /hpf (0-2)
[2023-09-05 10:53] VITALS: BP 125/76; PULSE 82; RESP 16; TEMP 98.2
== END 2023-09-05 13:57 | disposition home or self-care (01) ==
LOC: ER 04:35
DX: F15.10 Other stimulant abuse, uncomplicated (principal); R45.1 Restlessness and agitation; F14.90 Cocaine use, unspecified, uncomplicated; I25.10 Atherosclerotic heart disease of native coronary artery without angina pectoris; Z88.8 Allergy status to other drugs, medicaments and biological substances; Z20.822 Contact with and (suspected) exposure to COVID-19
CPT/HCPCS: 80305; 80048; 81003; 80307; 80329; 80320; 85025; 36415; 96372; 99291; 87426; J1200; J2060; J3486; G0480

== ENCOUNTER 2023-09-05 15:40 | Emergency (ER) | payer OTHER ==
[~2023-09-05] VITALS: Ht 175.3 cm; Wt 91.0 kg
[2023-09-05 15:49] VITALS: O2SAT 95
[2023-09-05] MEDS ORDERED: DIPHENHYDRAMINE 50MG CAPSULE PO ONE (16:00)
[2023-09-05] MEDS: DIPHENHYDRAMINE 25MG CAPSULE PO NR (16:30)
[2023-09-05] MEDS: DIAZEPAM 5 MG TABLET PO ONE (16:32)
[2023-09-05 18:43] VITALS: BP 136/82; PULSE 89; RESP 18; TEMP 98.2
== END 2023-09-05 20:15 | disposition home or self-care (01) ==
LOC: ER 15:40
DX: T43.651A Poisoning by methamphetamines accidental (unintentional), initial encounter (principal); G92.9 Unspecified toxic encephalopathy; I25.10 Atherosclerotic heart disease of native coronary artery without angina pectoris; F12.10 Cannabis abuse, uncomplicated; Z79.899 Other long term (current) drug therapy; Y92.89 Other specified places as the place of occurrence of the external cause
CPT/HCPCS: 99283; Q0163

== ENCOUNTER 2024-04-18 12:06 | Emergency (ER) | payer OTHER ==
[~2024-04-18] VITALS: Ht 172.7 cm; Wt 77.0 kg
[~2024-04-18 12:06] MED LIST changes: -OLAN15TA35 PO; +OLAN15TA97 PO
[2024-04-18 12:09] VITALS: O2SAT 98
[2024-04-18] MEDS: DIPHENHYDRAMINE 50MG/ML VIAL IM STA (12:47)
[2024-04-18] MEDS: LORAZEPAM 2MG/ML INJ IM ONE (12:47)
[2024-04-18] MEDS: HALOPERIDOL LACTATE 5MG/ML VIAL IM STA (12:47)
[2024-04-18 17:42] LABS: BASOPHILS % 0.3 % (0.0-2.0); EOSINOPHILS % 0.3 % (0.0-5.0); HEMATOCRIT. 37.3 % (42.0-52.0); HEMOGLOBIN. 12.3 g/dL (14.0-18.0); LYMPHOCYTES % 22.8 % (20.0-50.0); MEAN CORPUSCULAR HEMOGLOBIN 27.3 pg (28.0-32.0); MEAN CORPUSCULAR HGB CONC 32.9 g/dL (31.0-37.0); MEAN CORPUSCULAR VOLUME 82.8 fL (80.0-94.0); MEAN PLATELET VOLUME 7.3 fl (7.4-10.4); MONOCYTES % 11.2 % (2.0-8.0); NEUTROPHILS % 65.4 % (40.0-76.0); PLATELET 284 x1000/uL (130-400); RED BLOOD CELL COUNT 4.51 mill/uL (4.7-6.1); WHITE BLOOD COUNT 6.8 x1000/uL (4.5-11.0)
[2024-04-18 17:50] LABS: CHLORIDE 109 mEq/L (98-107); POTASSIUM 4.1 mEq/L (3.5-5.1); SODIUM 142 mEq/L (136-145)
[2024-04-18 17:51] LABS: CALCIUM 9.2 mg/dL (8.7-10.4); CARBON DIOXIDE 25 mEq/L (21-32)
[2024-04-18 17:56] LABS: CREATININE 1.4 mg/dL (0.6-1.3); GLUCOSE 128 mg/dL (70-105); UREA NITROGEN BLOOD 15 mg/dL (9-23)
[2024-04-18 17:57] LABS: TROPONIN I HIGH SENSITIVITY 23 ng/L (3.0-53)
[2024-04-18 17:58] LABS: ACETAMINOPHEN 3 ug/mL (10-30)
[2024-04-18 17:59] LABS: ETHANOL BLOOD < 10 mg/dL (<10)
[2024-04-18] MEDS: DIPHENHYDRAMINE 50MG/ML VIAL IM ONE (23:58)
[2024-04-19 07:46] VITALS: BP 124/85; PULSE 75; RESP 18; TEMP 36.9; O2SAT 98
== END 2024-04-19 10:22 | disposition home or self-care (01) ==
LOC: ER 12:06
DX: Z13.89 Encounter for screening for other disorder (principal); I25.10 Atherosclerotic heart disease of native coronary artery without angina pectoris; Z79.01 Long term (current) use of anticoagulants; Z79.82 Long term (current) use of aspirin; Z79.899 Other long term (current) drug therapy; Z91.148 Patient's other noncompliance with medication regimen for other reason; Z20.822 Contact with and (suspected) exposure to COVID-19
CPT/HCPCS: 80048; 80307; 80329; 80320; 85025; 84484; 36415; 96372; 99285; 87426; J1200; J1630; J2060; G0480

== ENCOUNTER 2024-05-18 21:19 | Emergency (ER) | payer OTHER ==
[~2024-05-18] VITALS: Ht 177.8 cm; Wt 87.0 kg
[2024-05-18] MEDS ORDERED: LORAZEPAM 2MG/ML INJ IM STA (22:15)
[2024-05-18] MEDS ORDERED: HALOPERIDOL LACTATE 5MG/ML VIAL IM STA (22:15)
[2024-05-18] MEDS: DIPHENHYDRAMINE 50MG/ML VIAL IM STA (22:30)
[2024-05-18] MEDS: OLANZAPINE 10 MG/VIAL IM ONE (22:30)
[2024-05-18 23:39] LABS: BASOPHILS % 0.3 % (0.0-2.0); EOSINOPHILS % 0.1 % (0.0-5.0); HEMATOCRIT. 40.3 % (42.0-52.0); HEMOGLOBIN. 13.1 g/dL (14.0-18.0); LYMPHOCYTES % 14.7 % (20.0-50.0); MEAN CORPUSCULAR HEMOGLOBIN 27.2 pg (28.0-32.0); MEAN CORPUSCULAR HGB CONC 32.6 g/dL (31.0-37.0); MEAN CORPUSCULAR VOLUME 83.6 fL (80.0-94.0); MEAN PLATELET VOLUME 7.7 fl (7.4-10.4); MONOCYTES % 6.9 % (2.0-8.0); PLATELET 327 x1000/uL (130-400); RED BLOOD CELL COUNT 4.82 mill/uL (4.7-6.1); WHITE BLOOD COUNT 6.5 x1000/uL (4.5-11.0)
[2024-05-18 23:50] LABS: CHLORIDE 103 mEq/L (98-107); POTASSIUM 4.2 mEq/L (3.5-5.1); SODIUM 139 mEq/L (136-145)
[2024-05-18 23:51] LABS: CARBON DIOXIDE 24 mEq/L (21-32)
[2024-05-18 23:52] LABS: CALCIUM 10.7 mg/dL (8.7-10.4)
[2024-05-18 23:56] LABS: CREATININE 1.4 mg/dL (0.6-1.3); GLUCOSE 86 mg/dL (70-105)
[2024-05-18 23:57] LABS: ETHANOL BLOOD 16 mg/dL (<10); TROPONIN I HIGH SENSITIVITY 8 ng/L (3.0-53); UREA NITROGEN BLOOD 14 mg/dL (9-23)
[2024-05-18 23:58] LABS: ACETAMINOPHEN < 2 ug/mL (10-30)
[2024-05-19] VITALS: O2SAT 98
[2024-05-19 00:07] LABS: *AMPHETAMINES SCREEN URINE PRESUMPTIVE POSITIVE (NEGATIVE); *BARBITURATES SCREEN URINE NEGATIVE (NEGATIVE); *BENZODIAZEPINES SCREEN URINE PRESUMPTIVE POSITIVE (NEGATIVE)
[2024-05-19 00:08] LABS: *COCAINE SCREEN URINE NEGATIVE (NEGATIVE); CANNABINOID URINE SCREEN PRESUMPTIVE POSITIVE (NEGATIVE); ECSTASY MDMA SCREEN URINE NEGATIVE (NEGATIVE); METHADONE URINE SCREEN NEGATIVE (NEGATIVE); OPIATES URINE SCREEN NEGATIVE (NEGATIVE); PHENCYCLIDINE URINE SCREEN NEGATIVE (NEGATIVE)
[2024-05-19 11:30] VITALS: BP 130/79; PULSE 83; RESP 18; TEMP 36.8; O2SAT 98
== END 2024-05-19 11:45 | disposition home or self-care (01) ==
LOC: ER 21:19
DX: R41.0 Disorientation, unspecified (principal); R46.2 Strange and inexplicable behavior; Z79.01 Long term (current) use of anticoagulants; Z79.82 Long term (current) use of aspirin; Z79.899 Other long term (current) drug therapy; Z20.822 Contact with and (suspected) exposure to COVID-19
CPT/HCPCS: 80305; 80048; 80307; 80329; 80320; 85025; 84484; 36415; 71045; 93005; 96372; 99291; 87426; J3490; J1200; Z7610 ×4; A4606; G0480

== ENCOUNTER 2024-05-25 15:50 | Emergency (ER) | payer OTHER ==
[~2024-05-25] VITALS: Ht 177.8 cm; Wt 82.0 kg
[2024-05-25 15:52] VITALS: TEMP 36.9
[2024-05-25] MEDS: SODIUM CHLORIDE 0.9% 1,000 ML IV ONE (16:10)
[2024-05-25] MEDS: DIPHENHYDRAMINE 50MG/ML VIAL IV ONE (16:11)
[2024-05-25 16:30] VITALS: O2SAT 98
[2024-05-25] MEDS: MIDAZOLAM HCL 2 MG/2 ML VIAL IV ONE ×2 (16:58→17:30)
[2024-05-25 17:02] LABS: PROTHROMBIN TIME 10.9 sec (9.6-11.0)
[2024-05-25 17:06] LABS: BASOPHILS % 0.3 % (0.0-2.0); CARBON DIOXIDE 22 mEq/L (21-32); CHLORIDE 108 mEq/L (98-107); EOSINOPHILS % 0.1 % (0.0-5.0); HEMATOCRIT. 36.5 % (42.0-52.0); HEMOGLOBIN. 11.6 g/dL (14.0-18.0); LYMPHOCYTES % 13.7 % (20.0-50.0); MEAN CORPUSCULAR HEMOGLOBIN 27.2 pg (28.0-32.0); MEAN CORPUSCULAR HGB CONC 31.8 g/dL (31.0-37.0); MEAN CORPUSCULAR VOLUME 85.3 fL (80.0-94.0); MEAN PLATELET VOLUME 7.3 fl (7.4-10.4); MONOCYTES % 6.6 % (2.0-8.0); NEUTROPHILS % 79.3 % (40.0-76.0); PLATELET 218 x1000/uL (130-400); POTASSIUM 4.2 mEq/L (3.5-5.1); RED BLOOD CELL COUNT 4.28 mill/uL (4.7-6.1); SODIUM 139 mEq/L (136-145); WHITE BLOOD COUNT 4.1 x1000/uL (4.5-11.0)
[2024-05-25 17:07] LABS: CALCIUM 9.1 mg/dL (8.7-10.4)
[2024-05-25 17:11] LABS: CREATININE 1.4 mg/dL (0.6-1.3)
[2024-05-25 17:12] LABS: GLUCOSE 89 mg/dL (70-105); UREA NITROGEN BLOOD 15 mg/dL (9-23)
[2024-05-25 17:19] LABS: TROPONIN I HIGH SENSITIVITY < 4 ng/L (3.0-53)
[2024-05-25 17:20] LABS: ETHANOL BLOOD < 10 mg/dL (<10)
[2024-05-25 17:30] VITALS: O2SAT 97
[2024-05-25 18:56] VITALS: TEMP 97.4
[2024-05-25] MEDS: ACETAMINOPHEN 325MG TABLET PO ONE (18:56)
[2024-05-25] MEDS: DIPHENHYDRAMINE 50MG/ML VIAL IV NR (20:00)
[2024-05-25] MEDS ORDERED: DIPHENHYDRAMINE 50MG/ML VIAL IV ONE (20:00)
[2024-05-25 23:40] VITALS: BP 115/72; PULSE 110; RESP 21
== END 2024-05-26 00:04 | disposition home or self-care (01) ==
LOC: ER 15:50
DX: F15.10 Other stimulant abuse, uncomplicated (principal); I10 Essential (primary) hypertension; Z88.8 Allergy status to other drugs, medicaments and biological substances; Z88.1 Allergy status to other antibiotic agents; Z79.82 Long term (current) use of aspirin; Z79.899 Other long term (current) drug therapy
CPT/HCPCS: 80048; 80320; 83880; 85025; 85610; 84484; 36415; 71045; 93005; 96361; 96374; 96375; 96376; 99285; J1200; J2250; J7030; Z7610; G0480

== ENCOUNTER 2024-05-26 00:10 | Emergency (ER) | payer OTHER ==
[~2024-05-26] VITALS: Ht 177.8 cm; Wt 84.5 kg
[2024-05-26 00:40] VITALS: O2SAT 97
[2024-05-26 00:44] VITALS: BP 143/99; PULSE 98; RESP 16; TEMP 37.1
[2024-05-26 01:37] LABS: BASOPHILS % 0.5 % (0.0-2.0); EOSINOPHILS % 0.3 % (0.0-5.0); HEMOGLOBIN. 12.4 g/dL (14.0-18.0); LYMPHOCYTES % 23.8 % (20.0-50.0); MEAN CORPUSCULAR HEMOGLOBIN 27.8 pg (28.0-32.0); MEAN CORPUSCULAR HGB CONC 32.7 g/dL (31.0-37.0); MEAN CORPUSCULAR VOLUME 84.9 fL (80.0-94.0); MEAN PLATELET VOLUME 7.5 fl (7.4-10.4); MONOCYTES % 4.7 % (2.0-8.0); NEUTROPHILS % 70.7 % (40.0-76.0); PLATELET 225 x1000/uL (130-400); RED BLOOD CELL COUNT 4.48 mill/uL (4.7-6.1); RED CELL DISTRIBUTION WIDTH 18.6 % (11.6-14.6); WHITE BLOOD COUNT 6.1 x1000/uL (4.5-11.0)
[2024-05-26 01:42] LABS: CHLORIDE 106 mEq/L (98-107); POTASSIUM 3.9 mEq/L (3.5-5.1); SODIUM 140 mEq/L (136-145)
[2024-05-26 01:43] LABS: CARBON DIOXIDE 25 mEq/L (21-32)
[2024-05-26 01:44] LABS: CALCIUM 9.7 mg/dL (8.7-10.4)
[2024-05-26 01:48] LABS: CREATININE 1.2 mg/dL (0.6-1.3); GLUCOSE 88 mg/dL (70-105); UREA NITROGEN BLOOD 13 mg/dL (9-23)
[2024-05-26 07:09] VITALS: TEMP 98.8
[2024-05-26] MEDS: ACETAMINOPHEN 325MG TABLET PO STA (07:09)
== END 2024-05-26 09:00 | disposition left against medical advice (07) ==
LOC: ER 00:10
DX: R07.89 Other chest pain (principal); F15.10 Other stimulant abuse, uncomplicated; Z88.1 Allergy status to other antibiotic agents; Z88.8 Allergy status to other drugs, medicaments and biological substances; Z79.82 Long term (current) use of aspirin; Z79.899 Other long term (current) drug therapy
CPT/HCPCS: 36415; 80048; 85025; 93005; 99284

== ENCOUNTER 2024-06-14 18:12 | Emergency (ER) | payer OTHER ==
[~2024-06-14] VITALS: Ht 175.3 cm; Wt 75.0 kg
[2024-06-14] MEDS: ZIPRASIDONE MESYLATE 20MG/VIAL IM ONE (18:20)
[2024-06-14] MEDS: DIPHENHYDRAMINE 50MG/ML VIAL IM STA (18:28)
[2024-06-14 20:01] LABS: HEMOGLOBIN. 11.7 g/dL (14.0-18.0); MEAN CORPUSCULAR HEMOGLOBIN 27.8 pg (28.0-32.0); MEAN CORPUSCULAR HGB CONC 33.4 g/dL (31.0-37.0); MEAN CORPUSCULAR VOLUME 83.3 fL (80.0-94.0); MEAN PLATELET VOLUME 7.5 fl (7.4-10.4); PLATELET 301 x1000/uL (130-400); WHITE BLOOD COUNT 9.4 x1000/uL (4.5-11.0)
[2024-06-14 20:10] LABS: CHLORIDE 107 mEq/L (98-107); SODIUM 140 mEq/L (136-145)
[2024-06-14 20:11] LABS: CALCIUM 10.3 mg/dL (8.7-10.4); CARBON DIOXIDE 22 mEq/L (21-32)
[2024-06-14 20:13] LABS: DIFFERENTIAL COMMENT 1
[2024-06-14 20:16] LABS: CREATININE 1.2 mg/dL (0.6-1.3); ETHANOL BLOOD 25 mg/dL (<10); GLUCOSE 108 mg/dL (70-105); UREA NITROGEN BLOOD 18 mg/dL (9-23)
[2024-06-14 20:18] LABS: ACETAMINOPHEN < 2 ug/mL (10-30)
[2024-06-14 20:42] LABS: ANISOCYTOSIS 1+; PLATELET ESTIMATE NORMAL
[2024-06-14 21:37] LABS: CLARITY URINE CLEAR (CLEAR); COLOR URINE YELLOW (YELLOW); GLUCOSE URINE NEGATIVE (NEGATIVE); KETONES URINE TRACE (NEGATIVE); LEUKOCYTE ESTERASE URINE NEGATIVE (NEGATIVE); NITRITE URINE NEGATIVE (NEGATIVE); OCCULT BLOOD URINE NEGATIVE (NEGATIVE); PH URINE 6.5 (4.5-8.0); PROTEIN URINE 1+ (NEGATIVE); SPECIFIC GRAVITY URINE 1.027 (1.005-1.030)
[2024-06-14 21:48] LABS: *AMPHETAMINES SCREEN URINE PRESUMPTIVE POSITIVE (NEGATIVE); *BARBITURATES SCREEN URINE NEGATIVE (NEGATIVE); *BENZODIAZEPINES SCREEN URINE NEGATIVE (NEGATIVE); *COCAINE SCREEN URINE NEGATIVE (NEGATIVE); CANNABINOID URINE SCREEN NEGATIVE (NEGATIVE); ECSTASY MDMA SCREEN URINE NEGATIVE (NEGATIVE); METHADONE URINE SCREEN NEGATIVE (NEGATIVE); OPIATES URINE SCREEN NEGATIVE (NEGATIVE); PHENCYCLIDINE URINE SCREEN NEGATIVE (NEGATIVE)
[2024-06-14 21:54] LABS: RBC URINE NONE SEEN /hpf (0-2); SQUAMOUS EPITHELIAL CELL URINE RARE /lpf (RARE/1+); WBC URINE 0-2 /hpf (0-2)
[2024-06-14 21:55] LABS: BACTERIA URINE NONE SEEN
[2024-06-14] MEDS: DIPHENHYDRAMINE 50MG/ML VIAL IM ONE (22:42)
[2024-06-15 02:00] VITALS: O2SAT 100
[2024-06-15 10:05] VITALS: BP 123/77; PULSE 76; RESP 16; TEMP 37
== END 2024-06-15 11:02 | disposition home or self-care (01) ==
LOC: ER 18:12
DX: F15.10 Other stimulant abuse, uncomplicated (principal); F20.9 Schizophrenia, unspecified; F10.90 Alcohol use, unspecified, uncomplicated; Z59.86 Financial insecurity; Z79.01 Long term (current) use of anticoagulants; Z79.82 Long term (current) use of aspirin; Z79.899 Other long term (current) drug therapy; Z20.822 Contact with and (suspected) exposure to COVID-19; Y90.9 Presence of alcohol in blood, level not specified
CPT/HCPCS: 80305; 80048; 81003; 80307; 80329; 80320; 85025; 36415; 96372; 99285; 87426; J1200; J3486; G0480

== ENCOUNTER 2024-07-11 20:20 | Emergency (ER) | payer OTHER ==
[~2024-07-11] VITALS: Ht 177.8 cm; Wt 75.0 kg
[~2024-07-11 20:20] MED LIST changes: -APIX5TAB MT; +QUET50TA23 PO
[2024-07-11] MEDS ORDERED: LORAZEPAM 2MG/ML INJ IV ONE (20:45)
[2024-07-11] MEDS: OLANZAPINE 10 MG/VIAL IM ONE (21:26)
[2024-07-11] MEDS: LORAZEPAM 2MG/ML UD SYRINGE IV NR (21:45)
[2024-07-11] MEDS: SODIUM CHLORIDE 0.9% 1,000 ML IV ONE (21:51)
[2024-07-11 22:28] LABS: BASOPHILS % 0.3 % (0.0-2.0); HEMATOCRIT. 37.5 % (42.0-52.0); HEMOGLOBIN. 12.2 g/dL (14.0-18.0); LYMPHOCYTES % 11.9 % (20.0-50.0); MEAN CORPUSCULAR HEMOGLOBIN 26.9 pg (28.0-32.0); MEAN CORPUSCULAR HGB CONC 32.5 g/dL (31.0-37.0); MEAN CORPUSCULAR VOLUME 82.7 fL (80.0-94.0); MEAN PLATELET VOLUME 7.4 fl (7.4-10.4); MONOCYTES % 5.7 % (2.0-8.0); NEUTROPHILS % 82.1 % (40.0-76.0); PLATELET 381 x1000/uL (130-400); RED BLOOD CELL COUNT 4.54 mill/uL (4.7-6.1); RED CELL DISTRIBUTION WIDTH 16.7 % (11.6-14.6); WHITE BLOOD COUNT 7.2 x1000/uL (4.5-11.0)
[2024-07-11 22:36] LABS: CHLORIDE 105 mEq/L (98-107); POTASSIUM 4.1 mEq/L (3.5-5.1); SODIUM 143 mEq/L (136-145)
[2024-07-11 22:37] LABS: CALCIUM 9.7 mg/dL (8.7-10.4); CARBON DIOXIDE 25 mEq/L (21-32)
[2024-07-11 22:42] LABS: CREATININE 1.4 mg/dL (0.6-1.3); GLUCOSE 122 mg/dL (70-105); UREA NITROGEN BLOOD 12 mg/dL (9-23)
[2024-07-11 22:43] LABS: ETHANOL BLOOD 47 mg/dL (<10)
[2024-07-11] MEDS: HALOPERIDOL LACTATE 5MG/ML VIAL IM ONE (23:59)
[2024-07-12 01:00] VITALS: BP 121/81; PULSE 104; RESP 20; TEMP 37.2; O2SAT 97
== END 2024-07-12 03:06 | disposition home or self-care (01) ==
LOC: ER 20:20
DX: T43.621A Poisoning by amphetamines, accidental (unintentional), initial encounter (principal); F20.9 Schizophrenia, unspecified; Z79.01 Long term (current) use of anticoagulants; Z79.82 Long term (current) use of aspirin; Z79.899 Other long term (current) drug therapy; Z88.8 Allergy status to other drugs, medicaments and biological substances; Y92.89 Other specified places as the place of occurrence of the external cause
CPT/HCPCS: 80048; 80320; 85025; 36415; 93005; 96361; 96372; 96374; 99285; J3490; J1630; J2060; J7030; Z7610; G0480

== ENCOUNTER 2024-07-13 03:19 | Emergency (ER) | payer OTHER ==
[~2024-07-13] VITALS: Ht 190.5 cm; Wt 80.0 kg
[2024-07-13 03:30] VITALS: BP 153/101; PULSE 102; RESP 18; TEMP 36.7; O2SAT 99
== END 2024-07-13 06:30 | disposition home or self-care (01) ==
LOC: ER 03:23
DX: R07.89 Other chest pain (principal); F15.10 Other stimulant abuse, uncomplicated; Z88.8 Allergy status to other drugs, medicaments and biological substances; Z79.899 Other long term (current) drug therapy; Z79.82 Long term (current) use of aspirin; Z98.890 Other specified postprocedural states
CPT/HCPCS: 93005; 99283; Z7610

== ENCOUNTER 2024-07-13 08:42 | Emergency (ER) | payer OTHER ==
[~2024-07-13] VITALS: Ht 177.8 cm; Wt 85.0 kg
[2024-07-13] MEDS: LORAZEPAM 2MG/ML UD SYRINGE IM NR (02:32)
[2024-07-13] MEDS: OLANZAPINE 10 MG/VIAL IM STA (08:49)
[2024-07-13] MEDS ORDERED: LORAZEPAM 2MG/ML INJ IM STA (08:49)
[2024-07-13] MEDS: LORAZEPAM 2MG/ML UD SYRINGE IM SCH ×2 (09:15→13:30)
[2024-07-13 09:30] LABS: BASOPHILS % 0.2 % (0.0-2.0); EOSINOPHILS % 0.1 % (0.0-5.0); HEMATOCRIT. 35.5 % (42.0-52.0); HEMOGLOBIN. 11.7 g/dL (14.0-18.0); LYMPHOCYTES % 12.8 % (20.0-50.0); MEAN CORPUSCULAR HEMOGLOBIN 27.1 pg (28.0-32.0); MEAN PLATELET VOLUME 6.9 fl (7.4-10.4); MONOCYTES % 8.1 % (2.0-8.0); NEUTROPHILS % 78.8 % (40.0-76.0); PLATELET 319 x1000/uL (130-400); RED BLOOD CELL COUNT 4.34 mill/uL (4.7-6.1); RED CELL DISTRIBUTION WIDTH 17.3 % (11.6-14.6); WHITE BLOOD COUNT 5.2 x1000/uL (4.5-11.0)
[2024-07-13 09:38] LABS: CHLORIDE 106 mEq/L (98-107); POTASSIUM 3.8 mEq/L (3.5-5.1); SODIUM 142 mEq/L (136-145)
[2024-07-13 09:39] LABS: CARBON DIOXIDE 26 mEq/L (21-32)
[2024-07-13 09:40] LABS: CALCIUM 9.9 mg/dL (8.7-10.4)
[2024-07-13 09:44] LABS: CREATININE 1.4 mg/dL (0.6-1.3); GLUCOSE 104 mg/dL (70-105)
[2024-07-13 09:45] LABS: ETHANOL BLOOD < 10 mg/dL (<10); UREA NITROGEN BLOOD 14 mg/dL (9-23)
[2024-07-13] MEDS: DIPHENHYDRAMINE 50MG/ML VIAL IM ONE ×3 (10:52→21:15)
[2024-07-13] MEDS: OLANZAPINE 10 MG/VIAL IM NR (13:30)
[2024-07-13 16:49] LABS: COLOR URINE YELLOW (YELLOW); GLUCOSE URINE NEGATIVE (NEGATIVE); KETONES URINE NEGATIVE (NEGATIVE); LEUKOCYTE ESTERASE URINE NEGATIVE (NEGATIVE); NITRITE URINE NEGATIVE (NEGATIVE); OCCULT BLOOD URINE NEGATIVE (NEGATIVE); PH URINE 6.5 (4.5-8.0); PROTEIN URINE TRACE (NEGATIVE); SPECIFIC GRAVITY URINE 1.018 (1.005-1.030); UROBILINOGEN URINE 0.2 E.U./dL (0.2-1.0)
[2024-07-13 16:58] LABS: *AMPHETAMINES SCREEN URINE PRESUMPTIVE POSITIVE (NEGATIVE); *BARBITURATES SCREEN URINE NEGATIVE (NEGATIVE); *BENZODIAZEPINES SCREEN URINE PRESUMPTIVE POSITIVE (NEGATIVE); *COCAINE SCREEN URINE NEGATIVE (NEGATIVE); CANNABINOID URINE SCREEN NEGATIVE (NEGATIVE); METHADONE URINE SCREEN NEGATIVE (NEGATIVE); OPIATES URINE SCREEN NEGATIVE (NEGATIVE); PHENCYCLIDINE URINE SCREEN NEGATIVE (NEGATIVE)
[2024-07-13 16:59] LABS: ECSTASY MDMA SCREEN URINE CONF.TEST INDICATED (NEGATIVE)
[2024-07-13 17:02] LABS: CLARITY URINE CLEAR (CLEAR); RBC URINE NONE SEEN /hpf (0-2); WBC URINE 0-2 /hpf (0-2)
[2024-07-13 17:03] LABS: BACTERIA URINE NONE SEEN; HYALINE CASTS URINE 0-5 /lpf; MUCUS URINE 1+ /lpf (NONE/TRACE); SQUAMOUS EPITHELIAL CELL URINE NONE SEEN /lpf (RARE/1+)
[2024-07-13] MEDS: OLANZAPINE 10 MG/VIAL IM ONE (21:11)
[2024-07-13] MEDS ORDERED: LORAZEPAM 2MG/ML INJ IM ONE (21:15)
[2024-07-13 22:00] VITALS: O2SAT 99
[2024-07-14 15:38] VITALS: BP 129/92; PULSE 92; RESP 16; TEMP 37.2; O2SAT 100
== END 2024-07-14 15:47 ==
LOC: ER 08:42
DX: F20.9 Schizophrenia, unspecified (principal); F17.200 Nicotine dependence, unspecified, uncomplicated; F19.10 Other psychoactive substance abuse, uncomplicated; Z79.899 Other long term (current) drug therapy; Z20.822 Contact with and (suspected) exposure to COVID-19
CPT/HCPCS: 80305; 80048; 81003; 80307; 80329; 80320; 85025; 36415; 96372; 99291; 87426; J3490; J1200; J2060; Z7610 ×2; G0480

== ENCOUNTER 2024-07-28 08:47 | Emergency (ER) | payer OTHER ==
[~2024-07-28] VITALS: Ht 182.9 cm; Wt 82.0 kg
[2024-07-28 08:48] VITALS: O2SAT 97
[2024-07-28] MEDS: DIPHENHYDRAMINE 50MG/ML VIAL IM ONE (09:21)
[2024-07-28 09:22] LABS: BASOPHILS % 0.9 % (0.0-2.0); EOSINOPHILS % 0.1 % (0.0-5.0); HEMATOCRIT. 36.9 % (42.0-52.0); HEMOGLOBIN. 12.2 g/dL (14.0-18.0); LYMPHOCYTES % 19.1 % (20.0-50.0); MEAN CORPUSCULAR HEMOGLOBIN 27.1 pg (28.0-32.0); MEAN PLATELET VOLUME 7.2 fl (7.4-10.4); MONOCYTES % 8.5 % (2.0-8.0); NEUTROPHILS % 71.4 % (40.0-76.0); PLATELET 411 x1000/uL (130-400); RED CELL DISTRIBUTION WIDTH 17.2 % (11.6-14.6); WHITE BLOOD COUNT 6.2 x1000/uL (4.5-11.0)
[2024-07-28 09:36] LABS: CHLORIDE 105 mEq/L (98-107); POTASSIUM 4.3 mEq/L (3.5-5.1); SODIUM 138 mEq/L (136-145)
[2024-07-28 09:37] LABS: CARBON DIOXIDE 22 mEq/L (21-32)
[2024-07-28 09:38] LABS: CALCIUM 9.8 mg/dL (8.7-10.4)
[2024-07-28 09:42] LABS: CREATININE 1.4 mg/dL (0.6-1.3)
[2024-07-28 09:43] LABS: ETHANOL BLOOD < 10 mg/dL (<10); GLUCOSE 110 mg/dL (70-105); UREA NITROGEN BLOOD 14 mg/dL (9-23)
[2024-07-28 09:44] LABS: ACETAMINOPHEN < 2 ug/mL (10-30); TROPONIN I HIGH SENSITIVITY 40 ng/L (3.0-53)
[2024-07-28] MEDS: ZIPRASIDONE MESYLATE 20MG/VIAL IM ONE (10:02)
[2024-07-28 12:59] LABS: CLARITY URINE CLEAR (CLEAR); COLOR URINE YELLOW (YELLOW); GLUCOSE URINE NEGATIVE (NEGATIVE); KETONES URINE TRACE (NEGATIVE); LEUKOCYTE ESTERASE URINE NEGATIVE (NEGATIVE); NITRITE URINE NEGATIVE (NEGATIVE); OCCULT BLOOD URINE NEGATIVE (NEGATIVE); PROTEIN URINE TRACE (NEGATIVE); SPECIFIC GRAVITY URINE 1.023 (1.005-1.030); UROBILINOGEN URINE 0.2 E.U./dL (0.2-1.0)
[2024-07-28 13:19] LABS: *AMPHETAMINES SCREEN URINE PRESUMPTIVE POSITIVE (NEGATIVE); *BARBITURATES SCREEN URINE NEGATIVE (NEGATIVE); *BENZODIAZEPINES SCREEN URINE NEGATIVE (NEGATIVE); *COCAINE SCREEN URINE NEGATIVE (NEGATIVE); CANNABINOID URINE SCREEN NEGATIVE (NEGATIVE); ECSTASY MDMA SCREEN URINE CONF.TEST INDICATED (NEGATIVE); METHADONE URINE SCREEN NEGATIVE (NEGATIVE); OPIATES URINE SCREEN NEGATIVE (NEGATIVE); PHENCYCLIDINE URINE SCREEN NEGATIVE (NEGATIVE)
[2024-07-28 14:00] VITALS: BP 134/82; PULSE 120; RESP 16; TEMP 36.7; O2SAT 100
[2024-07-28 14:25] LABS: MUCUS URINE TRACE /lpf (NONE/TRACE); SQUAMOUS EPITHELIAL CELL URINE NONE SEEN /lpf (RARE/1+)
[2024-07-28 14:26] LABS: BACTERIA URINE TRACE; RBC URINE NONE SEEN /hpf (0-2); WBC URINE 0-2 /hpf (0-2)
== END 2024-07-28 15:20 | disposition home or self-care (01) ==
LOC: ER 08:57
DX: F15.10 Other stimulant abuse, uncomplicated (principal); Z79.82 Long term (current) use of aspirin; Z88.8 Allergy status to other drugs, medicaments and biological substances; Z98.890 Other specified postprocedural states; Z79.899 Other long term (current) drug therapy
CPT/HCPCS: 80305; 80048; 81003; 80307; 80329; 80320; 85025; 84484; 36415; 96372; 99284; J1200; J3486; Z7610; G0480

== ENCOUNTER 2024-07-29 16:36 | Emergency (ER) | payer OTHER ==
[~2024-07-29] VITALS: Ht 177.8 cm; Wt 82.0 kg
[2024-07-29 16:40] VITALS: O2SAT 94
[2024-07-29] MEDS: LORAZEPAM 1MG TABLET PO ONE (16:58)
[2024-07-29 17:39] LABS: HEMATOCRIT. 39.5 % (42.0-52.0); HEMOGLOBIN. 12.8 g/dL (14.0-18.0); MEAN CORPUSCULAR HEMOGLOBIN 27.2 pg (28.0-32.0); MEAN CORPUSCULAR HGB CONC 32.3 g/dL (31.0-37.0); MEAN CORPUSCULAR VOLUME 84.1 fL (80.0-94.0); MEAN PLATELET VOLUME 7.4 fl (7.4-10.4); PLATELET 407 x1000/uL (130-400); RED CELL DISTRIBUTION WIDTH 17.5 % (11.6-14.6); WHITE BLOOD COUNT 13.7 x1000/uL (4.5-11.0)
[2024-07-29 17:40] LABS: DIFFERENTIAL COMMENT 1
[2024-07-29 17:50] LABS: CHLORIDE 109 mEq/L (98-107); SODIUM 145 mEq/L (136-145)
[2024-07-29 17:51] LABS: CARBON DIOXIDE 21 mEq/L (21-32)
[2024-07-29 17:52] LABS: CALCIUM 10.3 mg/dL (8.7-10.4)
[2024-07-29 17:56] LABS: GLUCOSE 81 mg/dL (70-105)
[2024-07-29 17:57] LABS: CREATININE 2.2 mg/dL (0.6-1.3); ETHANOL BLOOD 65 mg/dL (<10); UREA NITROGEN BLOOD 26 mg/dL (9-23)
[2024-07-29 17:58] LABS: ACETAMINOPHEN < 2 ug/mL (10-30)
[2024-07-29 17:59] LABS: PLATELET ESTIMATE INCREASED
[2024-07-29] MEDS ORDERED: LORAZEPAM 2MG/ML INJ IM ONE (20:15)
[2024-07-29] MEDS: HALOPERIDOL LACTATE 5MG/ML VIAL IM ONE (20:32)
[2024-07-29] MEDS: LORAZEPAM 2MG/ML UD SYRINGE IM SCH (20:32)
[2024-07-29 21:21] LABS: TROPONIN I HIGH SENSITIVITY 43 ng/L (3.0-53)
[2024-07-30 00:39] VITALS: BP 140/89; PULSE 91; RESP 16; TEMP 36.6; O2SAT 100
== END 2024-07-30 03:17 | disposition home or self-care (01) ==
LOC: ER 16:36
DX: F15.129 Other stimulant abuse with intoxication, unspecified (principal); R00.0 Tachycardia, unspecified; Z79.01 Long term (current) use of anticoagulants; Z79.82 Long term (current) use of aspirin; Z79.899 Other long term (current) drug therapy
CPT/HCPCS: 80048; 80307; 80329; 80320; 85025; 84484; 36415; 71045; 93005; 96372; 99285; J1630; J2060; Z7610; G0480

== ENCOUNTER 2024-08-28 10:42 | Emergency (ER) | payer OTHER ==
[~2024-08-28] VITALS: Ht 188 cm; Wt 109.0 kg
[2024-08-28 10:45] VITALS: O2SAT 98
[2024-08-28] MEDS ORDERED: LORAZEPAM 2MG/ML INJ IV ONE (11:15)
[2024-08-28 11:20] LABS: HEMATOCRIT. 32.7 % (42.0-52.0); HEMOGLOBIN. 10.8 g/dL (14.0-18.0); MEAN CORPUSCULAR HEMOGLOBIN 26.6 pg (28.0-32.0); MEAN CORPUSCULAR HGB CONC 32.9 g/dL (31.0-37.0); MEAN CORPUSCULAR VOLUME 80.7 fL (80.0-94.0); MEAN PLATELET VOLUME 7.3 fl (7.4-10.4); PLATELET 272 x1000/uL (130-400); RED BLOOD CELL COUNT 4.05 mill/uL (4.7-6.1); RED CELL DISTRIBUTION WIDTH 18.3 % (11.6-14.6); WHITE BLOOD COUNT 7.3 x1000/uL (4.5-11.0)
[2024-08-28 11:26] LABS: DIFFERENTIAL COMMENT 1
[2024-08-28 11:31] LABS: CHLORIDE 108 mEq/L (98-107); POTASSIUM 3.6 mEq/L (3.5-5.1); SODIUM 143 mEq/L (136-145)
[2024-08-28 11:32] LABS: CARBON DIOXIDE 25 mEq/L (21-32)
[2024-08-28 11:33] LABS: CALCIUM 10.1 mg/dL (8.7-10.4)
[2024-08-28 11:37] LABS: GLUCOSE 101 mg/dL (70-105); UREA NITROGEN BLOOD 15 mg/dL (9-23)
[2024-08-28 11:38] LABS: CREATININE 1.5 mg/dL (0.6-1.3); TROPONIN I HIGH SENSITIVITY 8 ng/L (3.0-53)
[2024-08-28 11:42] LABS: ANISOCYTOSIS 1+; PLATELET ESTIMATE NORMAL
[2024-08-28] MEDS: LORAZEPAM 2MG/ML UD SYRINGE IV SCH (12:00)
[2024-08-28] MEDS: SODIUM CHLORIDE 0.9% 1,000 ML IV ONE (12:03)
[2024-08-28] MEDS: DIPHENHYDRAMINE 50MG/ML VIAL IV ONE (12:13)
[2024-08-28 13:00] VITALS: BP 161/88; PULSE 125; RESP 30; TEMP 37.2; O2SAT 96
== END 2024-08-28 13:55 | disposition short-term general hospital (02) ==
LOC: ER 10:42 → CANBEDREQ 12:13 → ER 13:55
DX: R07.89 Other chest pain (principal); F41.9 Anxiety disorder, unspecified; F15.10 Other stimulant abuse, uncomplicated; Z79.01 Long term (current) use of anticoagulants; Z79.82 Long term (current) use of aspirin; Z79.899 Other long term (current) drug therapy; Z88.8 Allergy status to other drugs, medicaments and biological substances
CPT/HCPCS: 99285; 96360; 71045; 80048; 83880; 85025; 84484; 36415; 93005; J2060; J7030

== ENCOUNTER 2024-09-14 19:25 | Emergency (ER) | payer OTHER ==
[~2024-09-14] VITALS: Ht 180.3 cm; Wt 86.0 kg
[2024-09-14] MEDS ORDERED: OLANZAPINE 10 MG/VIAL IM STA ×2 (19:38→19:44)
[2024-09-14] MEDS: LORAZEPAM 2MG/ML UD SYRINGE IM SCH (20:01)
[2024-09-14] MEDS: OLANZAPINE 10 MG/VIAL IM SCH (20:01)
[2024-09-14 21:09] LABS: BASOPHILS % 0.4 % (0.0-2.0); EOSINOPHILS % 0.0 % (0.0-5.0); HEMATOCRIT. 35.3 % (42.0-52.0); HEMOGLOBIN. 11.4 g/dL (14.0-18.0); LYMPHOCYTES % 19.5 % (20.0-50.0); MEAN PLATELET VOLUME 7.1 fl (7.4-10.4); MONOCYTES % 3.8 % (2.0-8.0); NEUTROPHILS % 76.3 % (40.0-76.0); PLATELET 330 x1000/uL (130-400); RED BLOOD CELL COUNT 4.45 mill/uL (4.7-6.1); RED CELL DISTRIBUTION WIDTH 18.0 % (11.6-14.6)
[2024-09-14 21:22] LABS: CREATININE 1.4 mg/dL (0.6-1.3); UREA NITROGEN BLOOD 17 mg/dL (9-23)
[2024-09-14 21:23] LABS: ETHANOL BLOOD 120 mg/dL (<10)
[2024-09-14] MEDS: DIPHENHYDRAMINE 50MG/ML VIAL IM ONE (23:22)
[2024-09-15] MEDS: ZIPRASIDONE MESYLATE 20MG/VIAL IM NR (02:51)
[2024-09-15 06:10] VITALS: BP 129/84; PULSE 94; RESP 12; TEMP 36.8; O2SAT 98
[2024-09-15 07:14] LABS: CLARITY URINE CLEAR (CLEAR); COLOR URINE YELLOW (YELLOW); GLUCOSE URINE NEGATIVE (NEGATIVE); KETONES URINE NEGATIVE (NEGATIVE); NITRITE URINE NEGATIVE (NEGATIVE); OCCULT BLOOD URINE NEGATIVE (NEGATIVE); PH URINE 6.5 (4.5-8.0); PROTEIN URINE NEGATIVE (NEGATIVE); SPECIFIC GRAVITY URINE 1.014 (1.005-1.030); UROBILINOGEN URINE 0.2 E.U./dL (0.2-1.0)
[2024-09-15 07:15] LABS: LEUKOCYTE ESTERASE URINE NEGATIVE (NEGATIVE)
[2024-09-15 08:01] LABS: *AMPHETAMINES SCREEN URINE PRESUMPTIVE POSITIVE (NEGATIVE); *BARBITURATES SCREEN URINE NEGATIVE (NEGATIVE); *BENZODIAZEPINES SCREEN URINE NEGATIVE (NEGATIVE); *COCAINE SCREEN URINE NEGATIVE (NEGATIVE)
[2024-09-15 08:02] LABS: CANNABINOID URINE SCREEN NEGATIVE (NEGATIVE); ECSTASY MDMA SCREEN URINE NEGATIVE (NEGATIVE); METHADONE URINE SCREEN NEGATIVE (NEGATIVE); OPIATES URINE SCREEN NEGATIVE (NEGATIVE); PHENCYCLIDINE URINE SCREEN NEGATIVE (NEGATIVE)
== END 2024-09-15 09:55 | disposition home or self-care (01) ==
LOC: ER 19:25
DX: T43.651A Poisoning by methamphetamines accidental (unintentional), initial encounter (principal); G92.9 Unspecified toxic encephalopathy; F41.9 Anxiety disorder, unspecified; Z20.822 Contact with and (suspected) exposure to COVID-19; Z79.82 Long term (current) use of aspirin; Z88.8 Allergy status to other drugs, medicaments and biological substances; Z88.3 Allergy status to other anti-infective agents; Z79.899 Other long term (current) drug therapy; Z98.890 Other specified postprocedural states; Z86.59 Personal history of other mental and behavioral disorders; Y92.9 Unspecified place or not applicable
CPT/HCPCS: 80048; 80307; 80329; 80320; 85025; 36415; 96372 ×2; 99291; 80305; 81003; 87426; J1200; J2060; J3486; Z7610; J3490; G0480

== ENCOUNTER 2024-09-18 17:09 | Emergency (ER) | payer OTHER ==
[~2024-09-18] VITALS: Ht 177.8 cm; Wt 80.0 kg
[~2024-09-18 17:09] MED LIST changes: -B50 PO; +DIPH50CA42 PO
[2024-09-18 17:10] VITALS: TEMP 37.2; O2SAT 99
[2024-09-18 17:33] VITALS: O2SAT 100
[2024-09-18 17:42] VITALS: BP 158/97; PULSE 72; RESP 25
[2024-09-18] MEDS: KETOROLAC 30MG/ML VIAL IM ONE (17:42)
[2024-09-18] MEDS: DIPHENHYDRAMINE 50MG/ML VIAL IM STA (17:42)
== END 2024-09-18 17:50 | disposition home or self-care (01) ==
LOC: ER 17:09
DX: R07.89 Other chest pain (principal); F41.9 Anxiety disorder, unspecified; I10 Essential (primary) hypertension; F15.10 Other stimulant abuse, uncomplicated; Z79.899 Other long term (current) drug therapy; Z79.82 Long term (current) use of aspirin; Z79.01 Long term (current) use of anticoagulants; Z98.890 Other specified postprocedural states
CPT/HCPCS: 93005; 96372; 99284; J1200; J1885; Z7610

== ENCOUNTER 2024-09-25 20:15 | Emergency (ER) | payer OTHER ==
[~2024-09-25] VITALS: Ht 175.3 cm; Wt 82.0 kg
[~2024-09-25 20:15] MED LIST changes: +B50 PO; -DIPH50CA42 PO
[2024-09-25 20:18] VITALS: BP 120/85; PULSE 136; RESP 18; O2SAT 96
[2024-09-25] MEDS ORDERED: HALOPERIDOL LACTATE 5MG/ML VIAL IM ONE (22:15)
[2024-09-25] MEDS: DIPHENHYDRAMINE 50MG/ML VIAL IM ONE (22:24)
[2024-09-25] MEDS: ZIPRASIDONE MESYLATE 20MG/VIAL IM ONE (22:54)
== END 2024-09-26 00:16 | disposition home or self-care (01) ==
LOC: ER 20:15
DX: T43.651A Poisoning by methamphetamines accidental (unintentional), initial encounter (principal); F41.9 Anxiety disorder, unspecified; F17.200 Nicotine dependence, unspecified, uncomplicated; I10 Essential (primary) hypertension; Z79.01 Long term (current) use of anticoagulants; Z79.82 Long term (current) use of aspirin; Z79.899 Other long term (current) drug therapy; Y92.89 Other specified places as the place of occurrence of the external cause
CPT/HCPCS: 96372; 99284; J1200; J3486; Z7610; J1630

== ENCOUNTER 2024-09-26 09:30 | Emergency (ER) | payer OTHER ==
[~2024-09-26] VITALS: Ht 170.2 cm; Wt 70.0 kg
[2024-09-26] MEDS: ZIPRASIDONE MESYLATE 20MG/VIAL IM ONE (10:30)
[2024-09-26] MEDS: DIPHENHYDRAMINE 50MG/ML VIAL IM PRN (10:40)
[2024-09-26 11:21] LABS: CREATININE 1.5 mg/dL (0.6-1.3); ETHANOL BLOOD < 10 mg/dL (<10); UREA NITROGEN BLOOD 13 mg/dL (9-23)
[2024-09-26 11:42] LABS: BASOPHILS % 0.2 % (0.0-2.0); EOSINOPHILS % 0.1 % (0.0-5.0); HEMATOCRIT. 32.9 % (42.0-52.0); HEMOGLOBIN. 10.6 g/dL (14.0-18.0); LYMPHOCYTES % 9.1 % (20.0-50.0); MEAN PLATELET VOLUME 7.1 fl (7.4-10.4); MONOCYTES % 8.8 % (2.0-8.0); NEUTROPHILS % 81.8 % (40.0-76.0); RED BLOOD CELL COUNT 4.16 mill/uL (4.7-6.1); RED CELL DISTRIBUTION WIDTH 18.5 % (11.6-14.6)
[2024-09-26 11:45] LABS: PLATELET 274 x1000/uL (130-400)
[2024-09-26] MEDS: ZIPRASIDONE HCL 20MG CAPSULE PO ONE (16:45)
[2024-09-26] MEDS: LORAZEPAM 1MG TABLET PO ONE (16:45)
[2024-09-26] MEDS ORDERED: DIPHENHYDRAMINE 50MG/ML VIAL IM PRN (16:45)
[2024-09-26] MEDS: DIPHENHYDRAMINE 50MG/ML VIAL IM ONE (20:06)
[2024-09-26] MEDS: HALOPERIDOL LACTATE 5MG/ML VIAL IM ONE (20:06)
[2024-09-26] MEDS: POTASSIUM CHLORIDE 20MEQ TABLET SR PO SCH (20:06)
[2024-09-26 21:00] VITALS: O2SAT 97
[2024-09-27] MEDS: ZIPRASIDONE MESYLATE 20MG/VIAL IM ONE
[2024-09-27] MEDS ORDERED: ZIPRASIDONE MESYLATE 20MG/VIAL IM ONE
[2024-09-27 03:26] LABS: CLARITY URINE CLEAR (CLEAR); COLOR URINE YELLOW (YELLOW); GLUCOSE URINE NEGATIVE (NEGATIVE); KETONES URINE NEGATIVE (NEGATIVE); LEUKOCYTE ESTERASE URINE NEGATIVE (NEGATIVE); NITRITE URINE NEGATIVE (NEGATIVE); OCCULT BLOOD URINE NEGATIVE (NEGATIVE); PH URINE 6.0 (4.5-8.0); PROTEIN URINE NEGATIVE (NEGATIVE); SPECIFIC GRAVITY URINE 1.008 (1.005-1.030); UROBILINOGEN URINE 0.2 E.U./dL (0.2-1.0)
[2024-09-27 04:02] LABS: *AMPHETAMINES SCREEN URINE PRESUMPTIVE POSITIVE (NEGATIVE); *BARBITURATES SCREEN URINE NEGATIVE (NEGATIVE); *BENZODIAZEPINES SCREEN URINE PRESUMPTIVE POSITIVE (NEGATIVE); *COCAINE SCREEN URINE NEGATIVE (NEGATIVE); METHADONE URINE SCREEN NEGATIVE (NEGATIVE)
[2024-09-27 04:03] LABS: CANNABINOID URINE SCREEN NEGATIVE (NEGATIVE); ECSTASY MDMA SCREEN URINE CONF.TEST INDICATED (NEGATIVE); OPIATES URINE SCREEN NEGATIVE (NEGATIVE); PHENCYCLIDINE URINE SCREEN NEGATIVE (NEGATIVE)
[2024-09-27 10:45] VITALS: BP 140/52; PULSE 72; RESP 17; TEMP 36.8; O2SAT 96
== END 2024-09-27 10:55 | disposition home or self-care (01) ==
LOC: ER 09:30
DX: F15.150 Other stimulant abuse with stimulant-induced psychotic disorder with delusions (principal); F41.9 Anxiety disorder, unspecified; I10 Essential (primary) hypertension; F20.9 Schizophrenia, unspecified; Z79.899 Other long term (current) drug therapy; Z98.890 Other specified postprocedural states; Z20.822 Contact with and (suspected) exposure to COVID-19
CPT/HCPCS: 80048; 80320; 85025; 36415 ×2; 96372 ×2; 96374; 99285; 80305; 81003; 80307; 80329; 87426; J1200; J1630; J2060; J3486 ×2; Z7610 ×3; 93005; A4606; G0480

== ENCOUNTER 2024-10-13 13:39 | Emergency (ER) | payer OTHER ==
[~2024-10-13] VITALS: Ht 177.8 cm; Wt 90.0 kg
[2024-10-13] MEDS ORDERED: MIDAZOLAM HCL 5 MG/ML VIAL IM ONE ×2 (14:00→20:00)
[2024-10-13] MEDS: OLANZAPINE 10 MG/VIAL IM ONE ×2 (14:17→23:38)
[2024-10-13] MEDS: MIDAZOLAM HCL 2 MG/2 ML VIAL IM SCH (14:18)
[2024-10-13] MEDS ORDERED: MIDAZOLAM HCL 2 MG/2 ML VIAL IV ONE (16:30)
[2024-10-13] MEDS: MIDAZOLAM HCL 5 MG/5 ML VIAL IV SCH (16:47)
[2024-10-13] MEDS: LORAZEPAM 2MG/ML UD SYRINGE IM NR ×2 (16:48→20:38)
[2024-10-13 18:05] LABS: BASOPHILS % 0.3 % (0.0-2.0); EOSINOPHILS % 0.0 % (0.0-5.0); HEMATOCRIT. 35.7 % (42.0-52.0); HEMOGLOBIN. 11.4 g/dL (14.0-18.0); LYMPHOCYTES % 12.6 % (20.0-50.0); MEAN PLATELET VOLUME 7.4 fl (7.4-10.4); MONOCYTES % 5.8 % (2.0-8.0); NEUTROPHILS % 81.3 % (40.0-76.0); PLATELET 300 x1000/uL (130-400); RED BLOOD CELL COUNT 4.39 mill/uL (4.7-6.1); RED CELL DISTRIBUTION WIDTH 20.4 % (11.6-14.6)
[2024-10-13 18:20] LABS: CREATININE 1.4 mg/dL (0.6-1.3); UREA NITROGEN BLOOD 14 mg/dL (9-23)
[2024-10-13 18:21] LABS: ETHANOL BLOOD < 10 mg/dL (<10)
[2024-10-13] MEDS: DIPHENHYDRAMINE 50MG/ML VIAL IM NR (19:04)
[2024-10-13] MEDS: MIDAZOLAM HCL 5 MG/5 ML VIAL IM NR (20:38)
[2024-10-13 23:00] VITALS: O2SAT 97
[2024-10-13 23:54] LABS: *AMPHETAMINES SCREEN URINE PRESUMPTIVE POSITIVE (NEGATIVE); *BARBITURATES SCREEN URINE NEGATIVE (NEGATIVE); *BENZODIAZEPINES SCREEN URINE PRESUMPTIVE POSITIVE (NEGATIVE); *COCAINE SCREEN URINE NEGATIVE (NEGATIVE); CANNABINOID URINE SCREEN NEGATIVE (NEGATIVE); ECSTASY MDMA SCREEN URINE NEGATIVE (NEGATIVE); METHADONE URINE SCREEN NEGATIVE (NEGATIVE); OPIATES URINE SCREEN NEGATIVE (NEGATIVE); PHENCYCLIDINE URINE SCREEN NEGATIVE (NEGATIVE)
[2024-10-14 09:25] VITALS: BP 143/80; PULSE 89; RESP 18; TEMP 37.1; O2SAT 100
== END 2024-10-14 09:30 | disposition home or self-care (01) ==
LOC: ER 13:45
DX: T43.651A Poisoning by methamphetamines accidental (unintentional), initial encounter (principal); G92.9 Unspecified toxic encephalopathy; F41.9 Anxiety disorder, unspecified; I10 Essential (primary) hypertension; Z20.822 Contact with and (suspected) exposure to COVID-19; Z79.899 Other long term (current) drug therapy; Z79.82 Long term (current) use of aspirin; Z88.8 Allergy status to other drugs, medicaments and biological substances; Z98.890 Other specified postprocedural states; Y92.9 Unspecified place or not applicable
CPT/HCPCS: 80305; 80048; 80320; 85025; 36415 ×2; 93005; 96372; 96374; 99285; 87426; 80329; J3490; J1200; J2060; J2250 ×2; Z7610 ×2; G0480

== ENCOUNTER 2024-10-15 06:49 | Emergency (ER) | payer OTHER ==
[~2024-10-15] VITALS: Ht 185.4 cm; Wt 90.0 kg
[2024-10-15 06:52] VITALS: O2SAT 98
[2024-10-15 07:38] LABS: BASOPHILS % 0.2 % (0.0-2.0); EOSINOPHILS % 0.1 % (0.0-5.0); HEMATOCRIT. 36.2 % (42.0-52.0); HEMOGLOBIN. 11.9 g/dL (14.0-18.0); LYMPHOCYTES % 9.5 % (20.0-50.0); MEAN PLATELET VOLUME 7.3 fl (7.4-10.4); MONOCYTES % 7.3 % (2.0-8.0); NEUTROPHILS % 82.9 % (40.0-76.0); PLATELET 287 x1000/uL (130-400); RED BLOOD CELL COUNT 4.52 mill/uL (4.7-6.1); RED CELL DISTRIBUTION WIDTH 21.7 % (11.6-14.6)
[2024-10-15 07:57] LABS: CREATININE 1.6 mg/dL (0.6-1.3)
[2024-10-15 07:58] LABS: ETHANOL BLOOD < 10 mg/dL (<10); UREA NITROGEN BLOOD 20 mg/dL (9-23)
[2024-10-15] MEDS: DIPHENHYDRAMINE 50MG/ML VIAL IV ONE (08:10)
[2024-10-15 09:35] LABS: TROPONIN I HIGH SENSITIVITY 11 ng/L (3.0-53)
[2024-10-15 10:14] VITALS: BP 135/102; PULSE 107; RESP 17; TEMP 36.9; O2SAT 98
== END 2024-10-15 10:30 | disposition short-term general hospital (02) ==
LOC: ER 06:49 → CANBEDREQ 10:29 → ER 10:30
DX: G93.40 Encephalopathy, unspecified (principal); F15.10 Other stimulant abuse, uncomplicated; F17.200 Nicotine dependence, unspecified, uncomplicated; F41.9 Anxiety disorder, unspecified; I10 Essential (primary) hypertension; F10.90 Alcohol use, unspecified, uncomplicated; Z79.01 Long term (current) use of anticoagulants; Z79.82 Long term (current) use of aspirin; Z79.899 Other long term (current) drug therapy; Y90.9 Presence of alcohol in blood, level not specified
CPT/HCPCS: 80048; 80320; 85025; 84484; 36415; 93005; 96374; 99285; J1200; Z7610 ×3; G0480

== ENCOUNTER 2024-10-23 17:43 | Emergency (ER) | payer OTHER ==
[~2024-10-23] VITALS: Ht 177.8 cm; Wt 90.0 kg
[2024-10-23] MEDS ORDERED: DIPHENHYDRAMINE 50MG/ML VIAL IV ONE (18:00)
[2024-10-23] MEDS: LORAZEPAM 2MG/ML UD SYRINGE IV SCH (18:30)
[2024-10-23] MEDS: DIPHENHYDRAMINE 50MG/ML VIAL IM ONE (18:41)
[2024-10-23] MEDS: LORAZEPAM 2MG/ML UD SYRINGE IM SCH (18:59)
[2024-10-23] MEDS: ZIPRASIDONE MESYLATE 20MG/VIAL IM ONE (19:25)
[2024-10-23 20:00] VITALS: O2SAT 95
[2024-10-23] MEDS: SODIUM CHLORIDE 0.9% 1,000 ML IV ONE (20:10)
[2024-10-23 20:25] LABS: HEMATOCRIT. 34.9 % (42.0-52.0); HEMOGLOBIN. 11.3 g/dL (14.0-18.0); MEAN PLATELET VOLUME 7.5 fl (7.4-10.4); PLATELET 245 x1000/uL (130-400); RED BLOOD CELL COUNT 4.37 mill/uL (4.7-6.1); RED CELL DISTRIBUTION WIDTH 20.8 % (11.6-14.6)
[2024-10-23 20:40] LABS: CREATININE 1.5 mg/dL (0.6-1.3); ETHANOL BLOOD 51 mg/dL (<10); LYMPHOCYTES % MANUAL 9.0 % (20.0-50.0); MONOCYTES % MANUAL 6.0 % (2.0-8.0); NEUTROPHILS % MANUAL 85.0 % (45.0-75.0); PLATELET ESTIMATE NORMAL; UREA NITROGEN BLOOD 19 mg/dL (9-23)
[2024-10-23 20:42] LABS: ASPARTATE AMINOTRANSFERASE 33 IU/L (<34); BILIRUBIN DIRECT < 0.1 mg/dL (<=3.0); BILIRUBIN TOTAL 0.3 mg/dL (0.1-1.0); PROTEIN TOTAL 7.8 g/dL (6.0-8.3)
[2024-10-23 23:50] VITALS: BP 138/89; PULSE 97; RESP 15; TEMP 36.6; O2SAT 97
== END 2024-10-24 00:10 | disposition short-term general hospital (02) ==
LOC: ER 17:43 → EDBEDREQ 21:02 → EDBEDREQTM 21:02 → ER 10-24 00:10 → CMPBEDREQ 10-24 09:55
DX: T44.901A Poisoning by unspecified drugs primarily affecting the autonomic nervous system, accidental (unintentional), initial encounter (principal); F15.10 Other stimulant abuse, uncomplicated; I10 Essential (primary) hypertension; F41.9 Anxiety disorder, unspecified; Z98.890 Other specified postprocedural states; Z79.899 Other long term (current) drug therapy; Z79.82 Long term (current) use of aspirin; Z79.01 Long term (current) use of anticoagulants; Y92.89 Other specified places as the place of occurrence of the external cause
CPT/HCPCS: 80076; 80048; 80320; 82550; 83735; 85025; 36415; 71045; 70450; 93005; 96360; 96361; 96372; 99291; J1200; J2060; J3486; J7030; Z7610; G0480